=== PATIENT | female | born 1990 | race Hispanic/Latino ===

== ENCOUNTER 2017-07-25 13:21 | Emergency (ER) | payer OTHER, SELFPAY ==
[2017-07-25 14:21] LABS: #Lymphocytes 0.7 thou/uL (1.20-3.40); #Monocytes 0.7 thou/uL (0.11-0.59); %Basophils 0.2 % (0.0-1.0); %Eosinophils 0.2 % (0.0-10.0); %Lymphocytes 11.4 % (21.0-51.0); %Monocytes 10.8 % (0.0-10.0); %Neutrophils 77.5 % (42.0-75.0); Hemoglobin 13.1 g/dL (12.0-16.0); Mean Corpuscular HGB CONC 34.7 g/dL (32.0-36.0); Mean Corpuscular Volume 80.7 fl (81.0-99.0); Mean Platelet Volume 6.3 fL (7.4-10.4); Platelet Count 274 thou/uL (130-400); RBC Distribution Width 12.6 % (11.5-14.5); Red Blood Cell (RBC) Count 4.68 mill/uL (4.20-5.40); White Blood Cell (WBC) Count 6.4 thou/uL (4.8-10.8)
[2017-07-25 14:22] LABS: Bilirubin Small (Negative); Blood, Urine Negative (Negative); Clarity CLOUDY (Clear); Glucose, Urine (Dipstick) Negative (Negative); Leukocyte Small (Negative); Nitrite Negative (Negative); Protein, Urine (Dipstick) 30 mg/dL (Neg-Trace); Specific Gravity, Urine 1.028 (1.002-1.036)
[2017-07-25 14:25] LABS: Bacteria/HPF 1+ HPF (None Seen); Hyaline Casts/LPF 7-10 HYALINE CAST LPF (0-3 Hyaline); Pathc Cast-AUWi Flag 1.62 (0-2.49)
[2017-07-25 14:28] LABS: Yeast-AUWi Flag 44.7 (0-25.0)
[2017-07-25] MEDS ORDERED: Metoclopramide HCl 10 MG/2 ML VIAL ONE (14:30)
[2017-07-25 14:40] LABS: ALT (SGPT) 31 U/L (8-55); AST (SGOT) 43 U/L (5-34); Albumin 3.9 g/dL (3.5-5.0); Alkaline Phosphatase 47 U/L (40-150); Anion Gap 12 mmol/L (10-20); BUN (Urea Nitrogen) 6 mg/dL (7.0-18.7); Bilirubin, Total 0.4 mg/dL (0.2-1.2); Calc. Creatinine Clearance 0 mL/min (70-130); Calcium 8.8 mg/dL (7.8-10.44); Carbon Dioxide 21 mmol/L (22-29); Chloride 102 mmol/L (98-107); Estimated GFR-MDRD Greater than 90; Globulin 3.5 g/dL (2.4-3.5); Glucose 114 mg/dL (70-105); Lipase 18 U/L (8-78); Potassium 3.4 mmol/L (3.5-5.1); Protein, Total 7.4 g/dL (6.0-8.3); Sodium 132 mmol/L (136-145)
[2017-07-25 14:42] LABS: Transitional Epithelial 0-3 HPF (0-3)
[2017-07-25 14:43] LABS: Renal Epithelial None Seen HPF (0-3); Yeast-All Forms None Seen HPF (None Seen)
== END 2017-07-25 16:26 | disposition home or self-care (01) ==
LOC: ERS 13:21
DX: O21.9 Vomiting of pregnancy, unspecified (principal); Z79.82 Long term (current) use of aspirin; Z79.899 Other long term (current) drug therapy; Z3A.17 17 weeks gestation of pregnancy
CPT/HCPCS: 80053; 81003; 81015; 83690; 85025; 87086; 96365; 96366; J2765

== ENCOUNTER 2017-12-19 13:20 | Day surgery (SDC) | payer OTHER ==
[2017-12-19 14:23] VITALS: BMI 33.0
[2017-12-19] MEDS: Lactated Ringer's 1,000 ML IV SCH ×2 (15:01→16:07)
[2017-12-19] MEDS ORDERED: Acetaminophen 500 MG TAB PO PRN (15:21)
[2017-12-19] MEDS ORDERED: Ondansetron HCl/PF 4 MG/2 ML Vial IVP SCH (15:30)
[2017-12-19] MEDS ORDERED: Lactated Ringer's 1,000 ML IV SCH (15:30)
--- NOTE | 2017-12-19 15:37 | PDOC.FPROB ---
FMR OB H&P: HPI - History of Present Illness Chief Complaint: elevated BP Indentification: 27 yr old at 37.2 wks by 9.1 wk sono History of Present Illness: Patient presents to L&D with c/o elevated BP at home of 151/116 taken on her home wrist cuff. She notes having nausea onset last night and vomited once in the middle of the night. She reports 3 episodes of diarrhea. She was able to drink last night but today has only taken 1 glass of water. She has eaten only a small amount of food. She reported some abdominal pain near umbilicus upon arrival but now is resolved. She reports some low back pain. Denies dysuria, increase in urinary frequency, fever, chills. She reports a feeling of anxiety today as manifested by SOB and palpitations. She has felt this once a couple weeks ago as well. She does note that this anxious feeling has resolved since being in L&D. Primary Care Physician: Dr. Ivelisse Eckert FMR OB H&P: Current - Care : 3 Para: 1011 Gestational age: 37.2 Due date: 01/07/2018 Dating Criteria: 9.1 wk sono Total weight gain: 14 lbs Course/Complications: chronic HTN on ASA 81 mg Hx of gest HTN borderline Macrosomia- hadlock 89.8% @ 22 wks and 72.6% at 32.5 wks prior - desires repeat LTCS - OB Labs HIV: negative RPR: negative GBS: negative - Anatomy Survey Anatomy survey: 20.4 wks- normal visualized anatomy, hadlock 89.8%tile - Additional Ultrasound Additional: 32.5 wks- 72.6%tile FMR OB H&P: History - Past Medical History PMH: chronic HTN on ASA 81 mg Hx of gest HTN - OB History OB History: 1. 01/18/2012- suspect anembryonic - no D&C 2. 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 History: age of menarche- 14 LMP 03/26/2017 but gave different date at [facility] an [facility] (inconsistent) - Surgical History Sx History: 10/28/2012- section - Social History Social History: no tobacco, durgs, or alcohol use - Family History Family History: Mother- HTN, A-fib Maternal GPA- DM FMR OB H&P: Medications - Current Home Medications: Medication Instructions Recorded Confirmed Type Acetaminophen [Tylenol Extra 1,000 mg PO ONE PRN tab 12/19/17 Rx Strength] Aspirin [Aspirin Chewable Tablet] 81 mg PO DAILY 12/19/17 12/19/17 History Doxylamine Succinate/Vit B6 20 mg PO DAILY 12/19/17 12/19/17 History [Tabby MENDIOLA] Ondansetron [Zofran ODT] 4 mg PO Q6HR PRN #20 tab 12/19/17 Rx Vitamin 1 tablet PO DAILY 12/19/17 12/19/17 History Allergies/Adverse Reactions: Allergies Allergy/AdvReac Type Severity Reaction Status Date / Time No Known Allergies Allergy Verified 12/19/17 14:13 FMR OB H&P: ROS - Review of Systems General: denies: fever/chills, weight/appetite/sleep changes Eyes: denies: eye pain, vision changes, scotomas ENT: denies: nasal congestion, rhinorrhea, sinus pain/pressure, ear pain Cardiovascular: reports: palpitation. denies: chest pain, edema Respiratory: reports: shortness of breath. denies: cough, congestion Gastrointestinal: reports: abdominal pain, nausea, vomiting, diarrhea. denies: constipation Genitourinary (Female): denies: incontinence, dysuria, hematuria, polyuria, vaginal discharge, vaginal pain, vaginal bleeding, contractions, vaginal pressure Musculoskeletal: reports: pain, other (no CVA tenderness). denies: stiffness, tenderness, redness Neurologic: denies: numbness, syncope, seizures Integumentary: denies: itching, rash Breast: denies: skin changes Psychological: reports: anxiety. denies: depression FMR OB H&P: Vital Signs - Maternal Vital signs: BP: 117/60 HR: 111 RR: 18 Temp: 99.4 - Heart Tones Baseline: 150 (at arrival, Baseline was 170's) Variability: moderate Acceleration: present Deceleration: absent Category: category 1 FMR OB H&P: Physical Exam - Physical Exam General: NAD, awake, alert and oriented HEENT: normocephalic and atraumatic, MMM, grossly normal vision, grossly normal hearing Neck: supple Chest: non-tender to palpation Breast: symmetric Heart: RRR, normal S1/S2, no murmurs/rubs/gallops General: CTAB, no respiratory distress, good air movement, no rales/rhonchi, no wheezing Abdomen: soft, gravid, non-tender Musculoskeletal: pulses present, FROM in all four extremities, no misalignment/ asymmetry Neurological: cranial nerves II through XII intact Skin: no rash, capillary refill <2 seconds FMR OB H&P: A/P - Problem List (1) Gastroenteritis Current Visit: Yes Status: Acute Code(s): K52.9 - NONINFECTIVE GASTROENTERITIS AND COLITIS, UNSPECIFIED (2) Normal intrauterine in third trimester Current Visit: Yes Status: Acute Code(s): Z34.93 - ENCNTR FOR SUPRVSN OF NORMAL PREG, UNSP, THIRD TRIMESTER (3) Chronic hypertension Current Visit: Yes Status: Acute Code(s): I10 - ESSENTIAL (PRIMARY) HYPERTENSION (4) History of delivery Current Visit: Yes Status: Acute Code(s): Z98.891 - HISTORY OF UTERINE SCAR FROM PREVIOUS SURGERY (5) History of gestational hypertension Current Visit: Yes Status: Acute Code(s): Z87.59 - PERSONAL HISTORY OF COMP OF PREG, CHLDBRTH AND THE PUERP Discussion: Date/Time: 12/19/17 1532 27 yr old at 37.2 wks by 9.1 wk sono with N/V/D. 1. gastroenteritis -abdominal pain resolved so low suspicion for gallbladder or appendix concern. Diarrhea presents so unlikely SBO. -initially tachycardic, resolved. Afebrile -patient feeling better s/p 1 bolus LR. Will bolus another liter -cont LR at 150 ml/hr -monitor FHTs -check UA -likely home if FHT's cont to be reassuring 2. hx of prior -repeat desired 3. chronic HTN -BPs well controlled in L&D during triage -per records, she has been well controlled -cont ASA 4. borderline macrosomia -hadlock 89.8 % @ 22 wks and repeat is 72.6%tile at 32.5 wks This H&P was discussed with [López] who agrees with the above documentation and plan. Attending Addendum - Attending Addendum Date/Time: 12/19/17 4184 I personally evaluated the patient and discussed the management with Dr. Noyola I agree with the History, Examination, Assessment and Plan documented above with any addition or exceptions noted below. 27 yo female at 37.2 wks by 9.1 wk sono here for evaluation of N/V/D. Patient with 3 episodes of diarrhea and 1 episode of NB/NB emesis. Now symptoms resolved but and maternal tachycardia. Fetus reassuring. +FM. No other complaints. No contractions. Patient started on IVFs. s/p 2Ls with great improvement in symptoms and tachycardia. Now tachycardia has resolved. Borderline maternal tachycardia. Will complete remainder of 3L and repeat pulse check. Overall patient ok for d/c. Precautions discussed. Follow up with Dr. Eckert next week. Rx sent for ryan Fontaine. Elsie
[2017-12-19 15:44] LABS: Bilirubin Negative (Negative); Blood, Urine Negative (Negative); Clarity CLEAR (Clear); Glucose, Urine (Dipstick) Negative (Negative); Leukocyte Negative (Negative); Nitrite Negative (Negative); Protein, Urine (Dipstick) Trace mg/dL (Neg-Trace); Specific Gravity, Urine 1.015 (1.002-1.036); pH, Urine 7.5 (5.0-9.0)
== END 2017-12-19 18:26 | disposition home or self-care (01) ==
LOC: L&D/OP 13:20
PROVIDERS: ATTEND Student in an Organized Health Care Education/Training Program
DX: O99.613 Diseases of the digestive system complicating pregnancy, third trimester (principal); K52.9 Noninfective gastroenteritis and colitis, unspecified; O10.913 Unspecified pre-existing hypertension complicating pregnancy, third trimester; Z98.890 Other specified postprocedural states; Z3A.37 37 weeks gestation of pregnancy; Z79.82 Long term (current) use of aspirin; Z79.899 Other long term (current) drug therapy
CPT/HCPCS: 81003; 96360; 96361; 96375; 99283; J2405

== ENCOUNTER 2017-12-28 10:35 | Inpatient (IN) | payer OTHER ==
[2017-12-28 11:21] VITALS: BMI 33.9
--- NOTE | 2017-12-28 11:38 | PDOC.FPROB ---
FMR OB H&P: HPI - History of Present Illness Chief Complaint: contractions and possible LOF Indentification: 27 yr old at 38.4 wks by 9.1 wk sono History of Present Illness: Patient reports painful contractions. Thinks water broke yesterday at [id number]. Contractions began about 2250 last night. Got stronger this morning. No vaginal bleeding. +FM. No headaches, vision changes. Some low abdominal and back pain, worse with contractions or if pressing on belly. No reported fevers. Primary Care Physician: Dr. Ivelisse Eckert FMR OB H&P: Current - Care : 3 Para: 1011 Gestational age: 38.4 Due date: 01/07/2018 Dating Criteria: 9.1 wk sono Total weight gain: 14lbs Course/Complications: chronic HTN on ASA 81 mg hx of gest HTN borderline macrosomia (resvoled)- hadlock 989.8% @ 22 wks and 72.6% at 32.5 wks prior C/S- desires rLTCS, was scheduled for 12/29/17 - Anatomy Survey Anatomy survey: 20.4 wks- normal visualized anatomy, hadlock 89.8% tile - Additional Ultrasound Additional: 32.5 wks- 72.6%tile FMR OB H&P: History - Past Medical History PMH: chronic HTN on ASA 81 mg hx of gest HTN - OB History OB History: 01/18/2012- suspect anembryonic - no D&C 10/28/2012- for failed induction d/t arrest of dilation at [facility] per patient at 40 wks. 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: age of menarche- 14 LMP 03/26/2017 but gave different date at [facility] and [facility] (inconsistent) so dated by sono - Surgical History Sx History: 10/28/2012- section - Social History Social History: no tobacco, drugs, alcohol - Family History Family History: Mother- HTN, a-fib Maternal GPA- DM FMR OB H&P: Medications - Current Home Medications: Medication Instructions Recorded Confirmed Type Aspirin [Aspirin Chewable Tablet] 81 mg PO DAILY 12/19/17 12/19/17 History Doxylamine Succinate/Vit B6 20 mg PO DAILY 12/19/17 12/19/17 History [Tabby MENDIOLA] Vitamin 1 tablet PO DAILY 12/19/17 12/19/17 History Allergies/Adverse Reactions: Allergies Allergy/AdvReac Type Severity Reaction Status Date / Time No Known Allergies Allergy Verified 12/19/17 14:13 FMR OB H&P: ROS - Review of Systems General: denies: fever/chills, weight/appetite/sleep changes ENT: denies: nasal congestion, rhinorrhea Cardiovascular: denies: chest pain, palpitation Respiratory: denies: cough, congestion, shortness of breath Gastrointestinal: reports: abdominal pain, cramping. denies: indigestion, bloating, nausea, vomiting, diarrhea Genitourinary (Female): reports: contractions. denies: dysuria, vaginal discharge, vaginal pain, vaginal bleeding, vaginal pressure Musculoskeletal: denies: pain, stiffness, tenderness Neurologic: denies: numbness, syncope Psychological: denies: depression, anxiety FMR OB H&P: Vital Signs - Maternal Vital signs: 129/84 HR: 101 RR: 18 Temp: 98.4 - Heart Tones Baseline: 145 Variability: moderate Acceleration: present Deceleration: absent Category: category 1 [place] contractions every: 2-3 min FMR OB H&P: Physical Exam - Physical Exam General: awake, alert and oriented, other (breathing through contractions) HEENT: normocephalic and atraumatic Neck: supple, FROM Chest: non-tender to palpation Breast: symmetric Heart: RRR, normal S1/S2, no murmurs/rubs/gallops General: CTAB, no respiratory distress, good air movement, no rales/rhonchi, no wheezing Abdomen: soft, gravid Deviation from normal: mild tenderness in low abdominal region Musculoskeletal: normal gait and station Neurological: cranial nerves II through XII intact Skin: no rash Psychiatric: intact recent and remote memory, good judgement and insight - Pelvic Exam SVE: 280/-2 FMR OB H&P: A/P - Problem List (1) SROM (spontaneous rupture of membranes) Current Visit: Yes Status: Acute Code(s): [id number] - Assessment and Plan: 27 yr old at 38.4 wks by 9.1 wk sono here for contractions and SROM - plan for now - suspected SROM for 19 hours - GBS negative (2) Chronic hypertension Current Visit: No Status: Acute Code(s): I10 - ESSENTIAL (PRIMARY) HYPERTENSION Assessment and Plan: -BPs have been well controlled. - 2 documented pressures in 140 systolic at 9wks and 12 wks. -monitor BPs (3) History of delivery Current Visit: No Status: Acute Code(s): Z98.891 - HISTORY OF UTERINE SCAR FROM PREVIOUS SURGERY Assessment and Plan: -planning for rLTCS -anesthesia notified -pending labs (4) Normal intrauterine in third trimester Current Visit: No Status: Acute Code(s): Z34.93 - ENCNTR FOR SUPRVSN OF NORMAL PREG, UNSP, THIRD TRIMESTER Discussion: Date/Time: 12/28/17 1481 This H&P was discussed with [] and [] who agree with the above documentation and plan. Attending Addendum - Attending Addendum Date/Time: 12/28/17 1328 I personally evaluated the patient and discussed the management with Dr. Noyola I agree with the History, Examination, Assessment and Plan documented above with any addition or exceptions noted below. 27 yo at 38.4 wks by 9.1 wk sono presenting with SROM one day ago. Will proceed with delivery at this time. Prior x 1. Pt has been counseled on r/b/a to repeat section vs tolac and she desires RLTCS.
[2017-12-28 12:09] LABS: Amnisure Test RUPTURE DETECTED (No Rupture)
[2017-12-28 12:10] LABS: Amnisure Internal Control QC ACCEPTABLE (ACCEPTABLE)
[2017-12-28] MEDS ORDERED: Promethazine HCl 25 MG/ML VIAL IM PRN (12:44)
[2017-12-28] MEDS ORDERED: Ondansetron HCl/PF 4 MG/2 ML Vial IVP PRN (12:44)
[2017-12-28] MEDS ORDERED: CEFAZOLIN/Water 2 GM/20 ML SYRINGE SLOW IVP SCH (12:45)
[2017-12-28] MEDS ORDERED: Bicitra 30 ML UDCUP PO SCH (12:45)
[2017-12-28] MEDS: Lactated Ringer's 1,000 ML IV SCH ×3 (13:00→14:40)
[2017-12-28 13:24] LABS: #Basophils 0.1 thou/uL (0.0-0.2); #Eosinphils 0.1 thou/uL (0.0-0.7); #Lymphocytes 2.3 thou/uL (1.20-3.40); #Monocytes 0.7 thou/uL (0.11-0.59); #Neutrophils 7.3 thou/uL (1.40-6.50); %Basophils 0.7 % (0.0-1.0); %Eosinophils 0.5 % (0.0-10.0); %Lymphocytes 22.2 % (21.0-51.0); %Monocytes 6.8 % (0.0-10.0); %Neutrophils 69.7 % (42.0-75.0); Hemoglobin 12.7 g/dL (12.0-16.0); Mean Corpuscular HGB CONC 34.8 g/dL (32.0-36.0); Mean Corpuscular Hemoglobin 28.5 pg (27.0-31.0); Mean Corpuscular Volume 81.9 fL (78.0-98.0); Mean Platelet Volume 6.4 fL (7.4-10.4); Platelet Count 220 thou/uL (130-400); RBC Distribution Width 13.7 % (11.5-14.5); Red Blood Cell (RBC) Count 4.45 mill/uL (4.20-5.40); White Blood Cell (WBC) Count 10.4 thou/uL (4.8-10.8)
[2017-12-28] MEDS ORDERED: Morphine PF 1 MG/ML SYR ONE (13:27)
[2017-12-28] MEDS ORDERED: Ketorolac Tromethamine 30 MG/ML VIAL ONE ×2 (13:27→14:45)
[2017-12-28] MEDS ORDERED: PHENYLEPHRINE-NS 100 MCG/ML 10 ML SYRINGE ONE ×2 (13:27→13:28)
[2017-12-28] MEDS ORDERED: Ondansetron HCl/PF 4 MG/2 ML Vial ONE (13:27)
[2017-12-28] MEDS ORDERED: Oxytocin 10 UNITS/ML VIAL ONE (13:28)
[2017-12-28] MEDS ORDERED: ePHEDrine/0.9% NaCl/PF SYRINGE 50 mg/10 ml ONE (13:28)
[2017-12-28] MEDS ORDERED: Bupivacaine 0.75% W/DEXTROSE 8.25% 2 ML AMP ONE (13:29)
[2017-12-28] MEDS ORDERED: Lidocaine 1% PF 5 ML VIAL ONE (13:29)
[2017-12-28 14:06] LABS: HBSAg Index 0.17 S/CO (0-0.99); Hep B Surf Ag Non-Reactive S/CO (NonReactive)
[2017-12-28] MEDS ORDERED: HYDROmorphone 2 MG/ML VIAL SLOW IVP PRN (14:55)
[2017-12-28] MEDS ORDERED: Meperidine HCl/PF 25 MG/ML VIAL SLOW IVP PRN (14:55)
[2017-12-28] MEDS ORDERED: NS / Oxytocin 40 units/1000ml 1,000 ML ONE (16:03)
--- NOTE | 2017-12-28 16:21 | PDOC.EVN ---
Event Note - Event Note Event Note: OPERATIVE NOTE PREOPERATIVE DIAGNOSIS: Term IUP Prior C/S Delivery, Declines JELLY Spontaneous Rupture of Membranes POSTOPERATIVE DIAGNOSIS: Same PROCEDURE: Repeat Low Transverse Section ATTENDING / PRIMARY SURGEON: Riley Comer MD RESIDENT / ASISSTANT SURGEON: Kendell Whalen MD PROCTORING: Marlene Valero DO ANESTHESIA: Spinal QBL: 565 cc CLINICAL SYNOPSIS: The patient is a 27 y/o female now 2 at 34 4/7 weeks EGA admitted with SROM and contractions since the previous night. Amnisure positive, 2 cm dilated. course had been complicated by chronic HTN on ASA. Please refer to Dr. Bravo H&P for complete details. I discussed the procedure in detail with the patient and R/B/A reviewed at length. The patient provided informed consent. PROCEDURE NOTE: After properly identifying the patient, she was taken to the OR and placed on the operating table in the sitting position. A spinal anesthetic was then administered. The patient was then placed in the supine position with a slight left lateral tilt. 2 g Ancef was administered for antibiotic prophylaxis. A Leiva catheter was inserted. heart tones were reassuring. A surgical time-out was taken per protocol. The patients abdomen was prepped and draped in the usual fashion for section. Check was made to ensure adequate anesthesia before proceeding further. A scalpel was used to create a pfannenstiel incision through the skin over her previous incision site and subcutaneous tissue. The abdominal fascia was nicked on both sides of the midline. Nelson scissors were used to extend the fascial incision bilaterally. The fascia was dissected easily off the anterior surface of the rectus muscles superiorly and inferiorly with a combination of blunt and sharp dissection. There was very little if any scar tissue. The rectus muscles were divided high in the midline and the peritoneum identified. The peritoneum was tented with hemostats and entered using Metzenbaum scissors. The peritoneal opening was extended cephalad and caudad using manual traction. A bladder blade was placed. A bladder flap was then created using Metzenbaum scissors. The bladder blade was then repositioned, interposed between the anterior surface of the lower uterine segment and the posterior surface of the bladder. A scalpel was used to create a small transverse incision in the lower uterine segment. A small amount of clear amniotic fluid was encountered. The uterine incision was extended bilaterally using the operators fingers and digital traction. The vertex was left occiput anterior. The infants head was elevated through the hysterotomy. There was no nuchal cord. The rest of the delivered easily. Following delivery, the infants nasopharynx and hypopharynx were suctioned with a bulb syringe. After delayed cord clamping, the infant was handed to waiting attendants. The healthy male and APGARS of 8/8 and one and five minutes respectively and weighed 7 lbs, 4 ozs. Cord blood sample was obtained and forwarded to the laboratory. Gentle traction was applied to the cord and the placenta delivered spontaneously and intact shortly thereafter. The placenta appeared to be grossly normal, the cord was tri-vessel. The uterus was then exteriorized from the pelvis and secured with a wet lap sponge. The uterine cavity was curetted with a dry lap sponge. The angles of the uterine incision were identified and grasped with ring forceps. The uterine incision was repaired in two layers with 1 - Monocryl suture material. The first layer was a running interlocking stitch, the second layer was imbricating. Uterine tone and hemostasis were both excellent. Clots were cleared from the pouch of Michael. The uterus was replaced back into the pelvis. The uterine incision was inspected once again and noted to be hemostatic. Neither the bladder flap nor the peritoneum were closed. The abdominal fascia was closed using 0 - Vicryl suture material with a running stitch. Integrity of the fascia was checked. The subcutaneous tissue was irrigated with warm saline and reapproximated with interrupted 3-0 chromic sutures. The skin was closed with 3 0 Monocryl with running subcuticular suture. Cosmetic results and hemostasis were both excellent. Dermabond was applied to the wound. A sterile dressing was then placed. At the conclusion of the procedure, sponge, instrument and needle counts were all correct. The Leiva catheter was draining clear urine. The patient was transported to the PACU in good condition. RILEY COMER MD <Riley Comer - Last Filed: 12/28/17 16:22> - Event Note Event Note: Please note, Pt is 27 yo [id number] at 38w4d, not 34w4d. <Marlene Valero - Last Filed: 12/29/17 13:36>
[2017-12-28] MEDS ORDERED: NS / Oxytocin 40 units/1000ml 1,000 ML IV SCH (17:15)
[2017-12-28] MEDS ORDERED: Simethicone Chewable 80 MG TAB PO PRN (18:20)
[2017-12-28] MEDS ORDERED: Bisacodyl 10 MG SUPP PR PRN (18:20)
[2017-12-28] MEDS ORDERED: Lanolin Ointment 7 GM TUBE TOP PRN (18:20)
--- NOTE | 2017-12-28 19:34 | PDOC.PP ---
Post Progress Note Post Day #: 0 Subjective: Time of exam: 19:15 Patient states she feels well and that her pain is well controlled. Only has carrie abdominal pain 2/2 palpation on examination. No nausea, headache, chest pain , or SOB. No concerns about bleeding. States baby is doing well. No concerns at this time. PO intake tolerated: yes Ambulation: no Vital Signs (12 hours) Temp Pulse Resp BP Pulse Ox 12/28/17 18:45 94 18 132/82 12/28/17 17:45 98.8 F 89 18 128/76 99 12/28/17 12:00 98.7 F 101 H 20 Weight Weight 95.254 kg - Physical Examination General: NAD Cardiovascular: no m/r/g, RRR Respiratory: clear to auscultation bilaterally, non-labored breathing Abdominal: + bowel sounds, lochia, no distention, appropriately TTP Fundus firm & at: just below the umbilicus Deviation from normal: Incision covered in post-op dressing. Did not remove. Neurological: no gross focal deficits Psychiatric: A&Ox3, normal affect Result Diagrams: 12/28/17 13:00 Additional Labs: Post Labs Blood Type O POSITIVE 12/28/17 13:00 Hep Bs Antigen Non-Reactive S/CO (NonReactive) 12/28/17 12:45 (1) History of delivery Code(s): Z98.891 - HISTORY OF UTERINE SCAR FROM PREVIOUS SURGERY Status: Acute (2) History of gestational hypertension Code(s): Z87.59 - PERSONAL HISTORY OF COMP OF PREG, CHLDBRTH AND THE PUERP Status: Chronic (3) Chronic hypertension Code(s): I10 - ESSENTIAL (PRIMARY) HYPERTENSION Status: Chronic - Assessment/Plan 27YO female now 2 day #0 s/p rLTCS @ 34.4 weeks. 1. day #0: - Will continue routine care. - Pain is well controlled. Will continue [place] PRN for pain. Consider adding CARLOS ibuprofen. - No ambulation yet but SCDs in place. - Leiva still in place with 200mL seen on exam. Adequate output. - Will continue docusate PRN for constipation. 2. Chronic HTN: - BPs have been well-controlled since admission. - Will continue to monitor. 3. h/o prolonged ROM: - Patient has been afebrile since admission & appropriately TTP on exam so no concern for infection at this time. - Will continue to monitor vitals and pain. Dispo: Likely to go home Friday after 48 hours post-op.
[2017-12-29] MEDS: HYDROcodone/Acetaminophen 5/325 mg Tablet PO PRN ×3 (04:42→23:53)
[2017-12-29 05:42] LABS: Hemoglobin 10.2 g/dL (12.0-16.0); Mean Corpuscular HGB CONC 35.7 g/dL (32.0-36.0); Mean Corpuscular Hemoglobin 29.1 pg (27.0-31.0); Mean Corpuscular Volume 81.6 fL (78.0-98.0); Mean Platelet Volume 6.1 fL (7.4-10.4); Platelet Count 193 thou/uL (130-400); RBC Distribution Width 13.6 % (11.5-14.5); White Blood Cell (WBC) Count 9.2 thou/uL (4.8-10.8)
--- NOTE | 2017-12-29 06:53 | PDOC.PP ---
Post Progress Note Post Day #: 1 Subjective: Feeling well and that is going well. No concerns this morning. PO intake tolerated: yes Flatus: yes Ambulation: yes Vital Signs (12 hours) Temp Pulse Resp BP Pulse Ox 12/29/17 04:30 98.2 F 83 20 115/74 12/29/17 00:10 98.1 F 85 20 111/56 L 12/28/17 20:10 98.1 F 109 H 20 119/66 98 Weight Weight 95.254 kg - Physical Examination General: NAD Cardiovascular: no m/r/g, RRR Respiratory: clear to auscultation bilaterally, non-labored breathing Abdominal: + bowel sounds, no distention, appropriately TTP Fundus firm & at: umbilicus Skin: CS incision dry & intact, no rash Neurological: no gross focal deficits Psychiatric: A&Ox3, normal affect Result Diagrams: 12/29/17 05:03 Additional Labs: Post Labs Blood Type O POSITIVE 12/28/17 13:00 Hep Bs Antigen Non-Reactive S/CO (NonReactive) 12/28/17 12:45 (1) Status post section routine follow-up Code(s): Z39.2 - ENCOUNTER FOR ROUTINE FOLLOW-UP; Z98.891 - HISTORY OF UTERINE SCAR FROM PREVIOUS SURGERY Status: Acute - Assessment/Plan 37 yo now 2011 PPD #1 from repeat LTCS 1. PPD 1 - Meeting all pp milestones - Continue routine care 2. cHTN - BP WNL - Continue to monitor - Recommend close OP f/u and assessment for medication 3. LTCS - Wound clean and dry - Subcuticular suture in place, no need for staple removal 4. Acute blood loss anemia - Stable, will monitor blood loss today and consider iron PO if indicated Possible discharge tomorrow if doing well. <Ivelisse Eckert - Last Filed: 12/29/17 07:14> Vital Signs (12 hours) Temp Pulse Resp BP Pulse Ox 12/30/17 12:00 98.1 F 87 20 120/75 12/30/17 08:43 98.4 F 100 139/90 20 L 12/30/17 07:35 98.4 F 100 20 12/30/17 04:00 98.2 F 91 20 117/65 Weight Weight 95.254 kg Result Diagrams: 12/29/17 05:03 Additional Labs: Post Labs Blood Type O POSITIVE 12/28/17 13:00 Hep Bs Antigen Non-Reactive S/CO (NonReactive) 12/28/17 12:45 <Donn Do - Last Filed: 12/30/17 12:33> Attending Addendum - Attending Addendum Date/Time: 12/30/17 1230 I personally evaluated the patient and discussed the management with Drs. Eckert and Celestine. I agree with the History, Examination, Assessment and Plan documented above with any addition or exceptions noted below. Víctro's p.o. No N/V. Vitals normal. Afeb. Abdomen soft, benign, Fundus firm, incision C/D/I. POD #1--expected recovery. Continue current care. <Donn Do - Last Filed: 12/30/17 12:33>
[2017-12-29] MEDS: Ferrous Sulfate 325 MG TAB PO SCH ×2 (07:57→17:32)
[2017-12-29] MEDS: Docusate Calcium (SURFAK) 240 MG CAP PO PRN (08:26)
[2017-12-29] MEDS: Ibuprofen 600 MG TAB PO PRN ×3 (08:26→23:53)
[2017-12-29] MEDS: Prenatal Vitamin 1 TAB PO SCH (08:27)
[2017-12-29] MEDS ORDERED: Adacel (T-DAP) 0.5 ML VIAL IM ONE (09:00)
[2017-12-29] MEDS: Lactated Ringer's 1,000 ML IV SCH (17:32)
[2017-12-30] MEDS: Ibuprofen 600 MG TAB PO PRN (05:27)
[2017-12-30] MEDS: Lactated Ringer's 1,000 ML IV SCH ×2 (05:34→08:47)
--- NOTE | 2017-12-30 06:49 | PDOC.PP ---
Post Progress Note Post Day #: 2 Subjective: Feeling well this morning. Ambulating and tolerating PO. Pain well-controlled. PO intake tolerated: yes Flatus: yes Ambulation: yes Vital Signs (12 hours) Temp Pulse Resp BP 12/30/17 04:00 98.2 F 91 20 117/65 12/30/17 00:00 98.4 F 98 20 118/69 12/29/17 20:05 98.1 F 100 20 132/80 Weight Weight 95.254 kg - Physical Examination General: NAD Cardiovascular: no m/r/g, RRR Respiratory: clear to auscultation bilaterally, non-labored breathing Abdominal: + bowel sounds, no distention, appropriately TTP Fundus firm & at: umbilicus Skin: CS incision dry & intact, no rash Neurological: no gross focal deficits Psychiatric: A&Ox3, normal affect Result Diagrams: 12/29/17 05:03 Additional Labs: Post Labs Blood Type O POSITIVE 12/28/17 13:00 Hep Bs Antigen Non-Reactive S/CO (NonReactive) 12/28/17 12:45 (1) Status post section routine follow-up Code(s): Z39.2 - ENCOUNTER FOR ROUTINE FOLLOW-UP; Z98.891 - HISTORY OF UTERINE SCAR FROM PREVIOUS SURGERY Status: Acute - Assessment/Plan 37 yo now 2011 PPD #2 from repeat LTCS 1. PPD 2 - Meeting all pp milestones - Continue routine care - Pain well-controlled on ibuprofen and norco 2. cHTN - BP WNL - Continue to monitor - Recommend close OP f/u and assessment for medication 3. LTCS - Wound clean and dry - Subcuticular suture in place, no need for staple removal 4. Acute blood loss anemia - Stable with normal VS Possible discharge later today <Ivelisse Eckert - Last Filed: 12/30/17 07:17> Vital Signs (12 hours) Temp Pulse Resp BP Pulse Ox 12/30/17 12:00 98.1 F 87 20 120/75 12/30/17 08:43 98.4 F 100 139/90 20 L 12/30/17 07:35 98.4 F 100 20 12/30/17 04:00 98.2 F 91 20 117/65 Weight Weight 95.254 kg Result Diagrams: 12/29/17 05:03 Additional Labs: Post Labs Blood Type O POSITIVE 12/28/17 13:00 Hep Bs Antigen Non-Reactive S/CO (NonReactive) 12/28/17 12:45 <Donn Do - Last Filed: 12/30/17 12:35> Attending Addendum - Attending Addendum Date/Time: 12/30/17 6397 I personally evaluated the patient and discussed the management with Drs. Eckert and Celestine. I agree with the History, Examination, Assessment and Plan documented above with any addition or exceptions noted below. Víctor's P.O. Vitals normal Afeb. Incision C/D/I Pain controlled with [place]. Will d/c home with Ibuprofen and Tylenol #3. F/u with Babar. <Donn Do - Last Filed: 12/30/17 12:35>
[2017-12-30] MEDS: HYDROcodone/Acetaminophen 5/325 mg Tablet PO PRN ×2 (08:45→12:58)
[2017-12-30] MEDS: Prenatal Vitamin 1 TAB PO SCH (08:45)
[2017-12-30] MEDS: Docusate Calcium (SURFAK) 240 MG CAP PO PRN (08:45)
[2017-12-30] MEDS: Ferrous Sulfate 325 MG TAB PO SCH (08:46)
[2017-12-30 12:30] VITALS: BP 120/75; TEMP 98.1
== END 2017-12-30 13:40 | disposition home or self-care (01) | DRG 765 ==
LOC: L&D/OP 10:35 → L&D 12:44 → 3SW 17:58
PROVIDERS: ADMIT Family Medicine; ATTEND Family Medicine
PROC: 10D00Z1 Extraction of Products of Conception, Low, Open Approach (ICD-10-PCS; principal; 2017-12-28)
DX: O10.92 Unspecified pre-existing hypertension complicating childbirth (principal); D62 Acute posthemorrhagic anemia; Z3A.38 38 weeks gestation of pregnancy; Z37.0 Single live birth; O34.211 Maternal care for low transverse scar from previous cesarean delivery; O99.02 Anemia complicating childbirth
CPT/HCPCS: 36415; 51702; 84112; 85025; 85027; 86762; 86850; 86900; 86901; 87340; 99285; J1885; J2001; J2274; J2405; J2590; J3490

== ENCOUNTER 2018-02-11 12:17 | Inpatient (IN) | payer OTHER ==
[2018-02-11] MEDS ORDERED: Acetaminophen 500 MG TAB ONE (13:04)
[2018-02-11] MEDS ORDERED: cefTRIAXone\\ROCEPHIN 2 GM VIAL ONE (13:04)
[2018-02-11] MEDS ORDERED: cefTRIAXone\\ROCEPHIN 1 GM VIAL ONE (13:05)
[2018-02-11 13:20] LABS: Hemoglobin 12.3 g/dL (12.0-16.0); Mean Corpuscular HGB CONC 31.7 g/dL (32.0-36.0); Mean Corpuscular Hemoglobin 25.5 pg (27.0-31.0); Mean Corpuscular Volume 80.6 fL (78.0-98.0); Mean Platelet Volume 7.1 fL (7.4-10.4); Platelet Count 244 thou/uL (130-400); RBC Distribution Width 12.6 % (11.5-14.5); Red Blood Cell (RBC) Count 4.81 mill/uL (4.20-5.40); White Blood Cell (WBC) Count 21.4 thou/uL (4.8-10.8)
[2018-02-11 13:35] LABS: ALT (SGPT) 11 U/L (8-55); AST (SGOT) 20 U/L (5-34); Albumin 4.1 g/dL (3.5-5.0); Alkaline Phosphatase 86 U/L (40-150); Anion Gap 16 mmol/L (10-20); BUN (Urea Nitrogen) 11 mg/dL (7.0-18.7); Bilirubin, Total 0.7 mg/dL (0.2-1.2); Calc. Creatinine Clearance 0 mL/min (70-130); Calcium 8.9 mg/dL (7.8-10.44); Carbon Dioxide 20 mmol/L (22-29); Chloride 101 mmol/L (98-107); Estimated GFR-MDRD 78; Globulin 4.1 g/dL (2.4-3.5); Glucose 123 mg/dL (70-105); Lipase 9 U/L (8-78); Magnesium 1.8 mg/dL (1.6-2.6); Potassium 3.6 mmol/L (3.5-5.1); Protein, Total 8.2 g/dL (6.0-8.3); Sodium 133 mmol/L (136-145)
[2018-02-11] MEDS ORDERED: Ketorolac Tromethamine 30 MG/ML VIAL ONE (13:43)
[2018-02-11 13:46] LABS: Bilirubin Negative (Negative); Blood, Urine Moderate (Negative); Clarity CLOUDY (Clear); Glucose, Urine (Dipstick) Negative (Negative); Leukocyte Large (Negative); Nitrite Negative (Negative); Protein, Urine (Dipstick) 100 mg/dL (Neg-Trace); Specific Gravity, Urine 1.006 (1.002-1.036)
[2018-02-11 13:48] LABS: Bacteria/HPF 4+ HPF (None Seen); Hyaline Casts/LPF 4-6 HYALINE CAST LPF (0-3 Hyaline); Pathc Cast-AUWi Flag 1.59 (0-2.49); RBC/HPF 0-3 HPF (0-3); Squamous Epithelial None Seen HPF (0-3)
[2018-02-11] MEDS ORDERED: Ondansetron ODT 4 MG TAB PO PRN (14:04)
[2018-02-11] MEDS ORDERED: Ondansetron HCl/PF 4 MG/2 ML Vial IVP PRN (14:04)
[2018-02-11] MEDS ORDERED: HYDROcodone/Acetaminophen 5/325 mg Tablet PO PRN ×2 (14:04)
[2018-02-11 14:07] LABS: Band 19 % (5-11); Lymphocytes 3 % (21-51); MDiff Complete? YES; Monocytes 3 % (0-10); Neutrophil 75 % (42-75); PLT Morphology Comment Appears Adequate
--- NOTE | 2018-02-11 14:42 | PDOC.FPRHP ---
- History of Present Illness Chief Complaint: fever History of Present Illness: Che is a 27 yo F with PMHx cHTN (recently well controlled off meds) who presents for 1 week of dysuria, vaginal bleeding and fever on and off. She reports that she was seen last Friday in clinic with UTI symptoms. At that time she was prescribed an antibiotic for 3 days and symptoms seemed to improve a little bit. She began to feel worse on Friday but thought she was coming down with a GI bug that her daughter had. She had nausea and vomiting but no abdominal pain or diarrhea. She endorses foul smelling vaginal discharge that has improved today. She endorses subjective fever and chills. She did not take her temp at home. Her daughter and have had n/v/d the last few days. Her baby has seemed well to her. She is . She had a repeat c/s on . ED Course: Labs, 4L NS, 2 gm rocephin, about to start vancomycin EKG sinus tachycardia rate 172, Qtc 480 - Allergies/Adverse Reactions Allergies Allergy/AdvReac Type Severity Reaction Status Date / Time No Known Allergies Allergy Verified 12/19/17 14:13 - Home Medications Medication Instructions Recorded Confirmed Type Vitamin 1 tablet PO DAILY 12/19/17 12/28/17 History Acetaminophen With Codeine 1 tablet PO Q6HR PRN #30 tablet 12/30/17 Rx [Tylenol with Codeine #3] Ibuprofen 200 mg PO Q8HR PRN #100 tablet 12/30/17 Rx - History PMHx: cHTN PSHx: C/S x2 FHx: Mom - a fib and HTN; Maternal GPA - DM Social: No tobacco, alcohol, drugs. . 2 children. - Review of Systems General: reports: fever/chills, night sweats, fatigue. denies: weight/appetite/ sleep changes Eyes: denies: eye pain, vision changes ENT: denies: nasal congestion, rhinorrhea Respiratory: denies: cough, congestion, shortness of breath Cardiovascular: denies: chest pain, palpitation Gastrointestinal: reports: nausea, vomiting. denies: diarrhea, abdominal pain Genitourinary: reports: dysuria, polyuria Skin: denies: rashes, lesions Musculoskeletal: denies: pain, tenderness, stiffness, swelling Neurological: reports: weakness. denies: numbness, syncope Psychological: denies: anxiety, depression - Vital signs BP: 121/81 HR: 142 RR: 18 Tmax: 104.7 Pox: 98% on RA Wt: 81 kg - Physical Exam Constitutional: NAD, awake, alert and oriented HEENT: normocephalic and atraumatic, PERRLA, other (dry MM) Neck: supple, trachea midline Chest: no-tender to palpation Heart: normal S1/S2, other (tachycardic) Lungs: CTAB, no respiratory distress Abdomen: soft, non-tender, bowel sounds present (hypoactive) Musculoskeletal: normal structure, normal tone, ROM grossly normal Neurological: no focal deficit, normal sensation Skin: no rash/lesions Heme/Lymphatic: no unusual bruising or bleeding, no purpura Psychiatric: normal mood and affect, good judgment and insight, intact recent and remote memory FMR H&P: Results - Labs Result Diagrams: 02/11/18 12:59 02/11/18 12:59 Lab results: WBC 21.4 thou/uL (4.8-10.8) H 02/11/18 12:59 Hgb 12.3 g/dL (12.0-16.0) 02/11/18 12:59 Hct 38.8 % (36.0-47.0) 02/11/18 12:59 MCV 80.6 fL (78.0-98.0) 02/11/18 12:59 Plt Count 244 thou/uL (130-400) 02/11/18 12:59 Band Neuts % (Manual) 19 % (5-11) H 02/11/18 12:59 Sodium 133 mmol/L (136-145) L 02/11/18 12:59 Potassium 3.6 mmol/L (3.5-5.1) 02/11/18 12:59 Chloride 101 mmol/L (98-107) 02/11/18 12:59 Carbon Dioxide 20 mmol/L (22-29) L 02/11/18 12:59 BUN 11 mg/dL (7.0-18.7) 02/11/18 12:59 Creatinine 0.88 mg/dL (0.6-1.1) 02/11/18 12:59 Glucose 123 mg/dL (70-105) H 02/11/18 12:59 Lactic Acid 1.5 mmol/L (0.5-2.2) 02/11/18 12:59 Calcium 8.9 mg/dL (7.8-10.44) 02/11/18 12:59 Total Bilirubin 0.7 mg/dL (0.2-1.2) 02/11/18 12:59 AST 20 U/L (5-34) 02/11/18 12:59 ALT 11 U/L (8-55) 02/11/18 12:59 Alkaline Phosphatase 86 U/L (40-150) 02/11/18 12:59 Serum Total Protein 8.2 g/dL (6.0-8.3) 02/11/18 12:59 Albumin 4.1 g/dL (3.5-5.0) 02/11/18 12:59 Lipase 9 U/L (8-78) 02/11/18 12:59 Urine Ketones Negative mg/dL (Negative) 02/11/18 13:22 Urine Blood Moderate (Negative) H 02/11/18 13:22 Urine Nitrite Negative (Negative) 02/11/18 13:22 Ur Leukocyte Esterase Large (Negative) H 02/11/18 13:22 Urine RBC 0-3 HPF (0-3) 02/11/18 13:22 Urine WBC Greater Than 50-TNTC HPF (0-3) H 02/11/18 13:22 Ur Squamous Epith Cells None Seen HPF (0-3) 02/11/18 13:22 Urine Bacteria 4+ HPF (None Seen) H 02/11/18 13:22 - EKG Interpretation EKG: Sinus tachycardia, QTC 480, HR 172, no axis deviation FMR H&P: A/P - Problem List (1) Sepsis Current Visit: Yes Status: Acute Code(s): A41.9 - SEPSIS, UNSPECIFIED ORGANISM (2) Pyelonephritis Current Visit: Yes Status: Acute Code(s): N12 - TUBULO-INTERSTITIAL NEPHRITIS, NOT SPCF ACUTE OR CHRONIC (3) History of delivery Current Visit: No Status: Acute Code(s): Z98.891 - HISTORY OF UTERINE SCAR FROM PREVIOUS SURGERY (4) Tachycardia Current Visit: Yes Status: Acute Code(s): R00.0 - TACHYCARDIA, UNSPECIFIED (5) Fever Current Visit: Yes Status: Acute Code(s): R50.9 - FEVER, UNSPECIFIED - Plan 27 yo F with sepsis 2/2 pyelonephritis 1. Sepsis - With significant tachycardia, will admit to IMCU for close monitoring - s/p 4L NS in ED - Will continue Rocephin (sensitivity from 02/06 showed sensitivity), resistant to Bactrim which was initial tx - Midline placed in ED - Continue NS @ 250 mL/hr - BCx, UCx pending 2. Tachycardia - Sinus on EKG - Improving with fluids - Continue to monitor on tele - Repeat EKG if no ongoing improvement 3. Pyelonephritis - Rocephin - Cultures as above - Will check procalcitonin - Will severity of illness will check BL renal sono to r/o abscess 4. Recent C/S with vaginal bleeding - No fundal tenderness - Vaginal bleeding resolved PPX: Lovenox CODE STATUS: FULL FMR H&P: Upper Level - Plan Date/Time: 02/11/18 1439 Attending Addendum - Attending Addendum Date/Time: 02/11/18 1550 I personally evaluated the patient and discussed the management with Dr. Eckert I agree with the History, Examination, Assessment and Plan documented above with any addition or exceptions noted below. Healthy 27 yo female presents to ER for evaluation of "feeling bad." Patient reports a week long history of no feeling well. Worse starting yesterday. Reports dysuria x 1 wk. Was seen and dx with UTI but antibiotics provided to patient were resistant per sensitivities. Progressed with body aches , low back pain, chills, and N/V on yesterday. + sick contacts at home with GI issues. Alittle more than 6 wks pp from RLTCS. Incision healing well and without compliants. Denies uterine tenderness or pelvic tenderness/pain. Denies vaginal discharge. VS reviewed. Labs reviewed. EKG with sinus tachycardia. Mild CVA tenderness on exam bilaterally but patient does not appear too uncomfortable. Incision well healed. No uterine or abdominal tenderness. 1. Sepsis due to pyelonephiritis: Continue IVFs. Repeat labs in AM. Continue Rocephin based on recent urine culture. Admit to tele. qSOFA = 0. Lovenox ppx. No significant concerns for complicated pyelo. 2. Sinus tachycardia due to infection and mild dehydration 3. mild dehydration: Continue IVFs. Will bolus 1L x2. FloraayMD
[2018-02-11 16:26] VITALS: BMI 31.6
[2018-02-11] MEDS: Acetaminophen 500 MG TAB PO PRN (17:46)
[2018-02-11] MEDS: Lactated Ringer's 1,000 ML IV SCH (17:47)
--- NOTE | 2018-02-11 19:32 | ULT ---
RENAL SONOGRAM 02/11/18 HISTORY: Renal abscess. COMPARISON: None available. FINDINGS: Right kidney measures 15.3 cm x 6.1 cm with the left kidney measuring 13.9 cm x 7.9 cm. There is a heterogeneous but predominantly echogenic mass seen in the inferior pole of the right kidn ey measuring 4 cm in maximal dimensions. There is a larger heterogeneous mass-like structure seen in the superior pole right kidney measuring 5.5 cm. There is a smaller heterogeneous mass-like structure seen within the mid portion right kidney which demonstrates central area of decreased echogenicity a nd surrounding thickened rim of increased echogenicity. A small heterogeneous but predominantly echog enic mass-like structure also seen in the inferior pole kidney measuring 3.8 cm. There is no evidence of hydronephrosis or perinephric fluid collection identified. Multiple gallbladder calculi are seen within the gallbladder lumen. The visualized portions of the ga llbladder on this exam demonstrates no gallbladder wall thickening or pericholecystic fluid; however, this exam was not tailored for evaluation of the gallbladder. The urinary bladder is completely decompressed with Leiva catheter in place. IMPRESSION: 1. Heterogeneous masses in each kidney. Largest heterogeneous mass-like structure seen in the yuan perior pole right kidney measuring 5.5 cm. Given the patient's clinical history, findings could be related to phlegmon and\or renal abscesses. However, CT scan of the abdomen with IV contrast is recom mended for confirmation. 2. Cholelithiasis. POS: [facility]
[2018-02-12] MEDS: Lactated Ringer's 1,000 ML IV SCH ×3 (00:35→16:27)
[2018-02-12] MEDS: Acetaminophen 500 MG TAB PO PRN ×4 (01:38→19:54)
[2018-02-12 04:31] LABS: Anion Gap 11 mmol/L (10-20); BUN (Urea Nitrogen) 7 mg/dL (7.0-18.7); Calc. Creatinine Clearance 187 mL/min (70-130); Calcium 7.9 mg/dL (7.8-10.44); Carbon Dioxide 20 mmol/L (22-29); Chloride 108 mmol/L (98-107); Estimated GFR-MDRD Greater than 90; Glucose 117 mg/dL (70-105); Sodium 136 mmol/L (136-145)
--- NOTE | 2018-02-12 05:25 | PDOC.FM ---
- Subjective Subjective: Reports fever and chills overnight. Denies any pain currently. No other concerns - Objective MAR Reviewed: Yes Vital Signs & Weight: Vital Signs (12 hours) Temp Pulse Resp BP Pulse Ox 02/12/18 04:10 101.5 F H 117 H 18 105/67 100 02/12/18 00:35 100 F H 122 H 18 121/60 100 02/11/18 20:15 100 02/11/18 19:29 98.2 F 111 H 16 96/64 100 Weight Weight 89.04 kg I&O: 02/10/18 02/11/18 02/12/18 06:59 06:59 06:59 Output Total 225 Balance -225 Result Diagrams: 02/12/18 03:47 02/12/18 03:47 <Malika Schaefer - Last Filed: 02/12/18 09:53> - Objective Vital Signs & Weight: Vital Signs (12 hours) Temp Pulse Resp BP Pulse Ox 02/12/18 11:32 97.6 F 119 H 125/89 95 02/12/18 08:13 99.2 F 126 H 117/89 94 L 02/12/18 07:50 100 02/12/18 04:10 101.5 F H 117 H 18 105/67 100 Weight Weight 89.04 kg I&O: 02/11/18 02/12/18 02/13/18 06:59 06:59 06:59 Intake Total 5076 Output Total 225 3300 Balance -225 1776 Result Diagrams: 02/12/18 03:47 02/12/18 03:47 <Lizzette Molina - Last Filed: 02/12/18 15:30> Phys Exam - Physical Examination Constitutional: NAD Respiratory: no wheezing, clear to auscultation bilateral Cardiovascular: RRR, no significant murmur Gastrointestinal: soft, non-tender, positive bowel sounds Psychiatric: normal affect, A&O x 3 <Malika Schaefer - Last Filed: 02/12/18 09:53> Dx/Plan (1) Fever Code(s): R50.9 - FEVER, UNSPECIFIED Status: Acute (2) Pyelonephritis Code(s): N12 - TUBULO-INTERSTITIAL NEPHRITIS, NOT SPCF ACUTE OR CHRONIC Status: Acute (3) Sepsis Code(s): A41.9 - SEPSIS, UNSPECIFIED ORGANISM Status: Acute (4) Tachycardia Code(s): R00.0 - TACHYCARDIA, UNSPECIFIED Status: Acute - Plan Plan: Ms Reddy is a 27 yo female with sepsis 2/2 pyelonephritis Sepsis 2/2 to pyleonephritis - Continued fever with tachycardia - Initially treated in clinic with bactrim (found to be resistant to Bactrim) - Continue Ceftriaxone (02/06 showed sensitivity) - Continue NS @ 250 mL/hr - BCx, UCx pending Pyelonephritis with renal abscess - Continue Ceftriaxone - Renal US 02/11: heterogeneous masses in both kidneys, largest 5.5cm representing abscess or phlegmon - CT for further evaluation awaiting official read - Will likely consult Urology for possible drainage Tachycardia, improving - sinus tach 2/2 sepsis - Continue to monitor Recent C/S with vaginal bleeding - No fundal tenderness - Vaginal bleeding resolved Code Status: FULL DVT ppx: Lovenox <Malika Schaefer - Last Filed: 02/12/18 09:53> Attending Addendum - Attending Addendum Date/Time: 02/12/18 1862 I personally evaluated the patient and discussed the management with Dr. Schaefer. I agree with the History, Examination, Assessment and Plan documented above with any addition or exceptions noted below. Patient is feeling better following fluid resuscitation and antibiotics. Getting CT scan to better visualize kidney. CT shows a mass on the right kidney. Will consult urology. Cultures are pending. Continue IV antibiotics. <Lizzette Molina - Last Filed: 02/12/18 15:30>
[2018-02-12 05:40] LABS: Band 22 % (5-11); Hemoglobin 10.4 g/dL (12.0-16.0); Lymphocytes 10 % (21-51); MDiff Complete? YES; Mean Corpuscular HGB CONC 32.2 g/dL (32.0-36.0); Mean Corpuscular Volume 80.9 fL (78.0-98.0); Mean Platelet Volume 7.2 fL (7.4-10.4); Neutrophil 68 % (42-75); Platelet Count 193 thou/uL (130-400); RBC Distribution Width 12.5 % (11.5-14.5); Red Blood Cell (RBC) Count 4.01 mill/uL (4.20-5.40); White Blood Cell (WBC) Count 13.1 thou/uL (4.8-10.8)
[2018-02-12] MEDS: Enoxaparin Sodium 40 MG/0.4 ML SYRINGE SC SCH (07:41)
[2018-02-12] MEDS: Potassium Chloride 20 MEQ TAB PO SCH ×2 (07:42→17:45)
--- NOTE | 2018-02-12 10:25 | CT ---
CT ABDOMEN AND PELVIS WITH AND WITHOUT IV CONTRAST: Date: 02-12-18 Provided Clinical History: Urinary tract infection and abnormal ultrasound. FINDINGS: There are small bilateral pleural effusions with adjacent subsegmental atelectasis. The liver, spleen, pancreas, and adrenal glands demonstrate a normal CT appearance. There is a 4.8 x 5 cm greatest transverse dimension x 5.8 cm craniocaudal dimension heterogeneously e nhancing solid mass arising from the medial aspect of the superior pole of the right kidney. The righ t renal vein appears patent. There are multifocal areas of diminished enhancement involving the renal parenchyma bilaterally in a pattern compatible with pyelonephritis. There is no evidence for renal abscess. There is a small amount of free intraperitoneal fluid and a small amount of retroperitoneal fluid. Th ere is no bowel dilatation or free air apparent. The osseous structures demonstrate no concerning lytic or blastic lesions. Leiva catheter is noted wi thin the urinary bladder with associated bladder gas. No definite regional lymph node enlargement is seen. IMPRESSION: 1. 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 Urology consultation is recommende d. 2. Bilateral pyelonephritis without evidence for renal abscess. 3. Small bilateral pleural effusions. POS: [facility]
--- NOTE | 2018-02-12 12:09 | CON ---
DATE OF CONSULTATION: 02/12/2018 HISTORY: This is a 27-year-old female who has been here for several days since the , presented w ith fever, chills, sweats and apparently dysuria. Urine is growing what appears to be E. coli. She had fever, chills, and sweats. She is on Rocephin. She has had a foul smelling vaginal discharge as per the primary care physician. SOCIAL HISTORY: He is a nonsmoker, nondrinker. Housewife. PAST SURGICAL HISTORY: Two C-sections. PAST MEDICAL HISTORY: No history of diabetes or hypertension. CHRONIC MEDICATIONS: Ibuprofen. ALLERGIES: None. REVIEW OF SYSTEMS: Otherwise ten point negative. PHYSICAL EXAMINATION: VITAL SIGNS: Blood pressure is 170/89, sats 94 on room air, pulse 126, temperature 99. CHEST: Chest revealed decreased breath sounds, no wheezing. CARDIAC: Normal S1, S2, no gallops. ABDOMEN: Distended and soft. LABORATORY DATA: White count 13,000, H&H 10 and 32, platelet count 193. Electrolytes are normal. Urine shows WBCs in the 50s, presumed Escherichia coli. IMPRESSION: 1. Escherichia coli sepsis. 2. Urinary tract infection. PLAN: I have added Zosyn for Enterococcus coverage. Continue Rocephin. I will follow. This is a consultation note 70 minutes, 50% spent in direct patient care.
[2018-02-12] MEDS: cefTRIAXone\\ROCEPHIN 1 GM in Sodium Chloride 0.9% 100 ML IVPB SCH (12:52)
[2018-02-12] MEDS: Piperacillin/Tazobactam 3.375 GM in Sodium Chloride 0.9% 100 ML IVPB SCH ×3 (12:58→23:45)
[2018-02-12] MEDS: Ibuprofen 800 MG TAB PO PRN ×2 (13:47→21:32)
[2018-02-12] MEDS ORDERED: Sodium Chloride 0.9% 1,000 ML IV STA ×3 (13:51→14:32)
[2018-02-12] MEDS ORDERED: ISOVUE-370 76%-LOCM 1 ML ONE (14:49)
[2018-02-12] MEDS: Sodium Chloride 0.9% 1,000 ML IV SCH ×2 (16:33→23:46)
--- NOTE | 2018-02-12 17:59 | RAD ---
PA AND LATERAL CHEST: Date: 02/12/18 HISTORY: Renal mass. FINDINGS: The cardiac silhouette and pulmonary vasculature are within normal limits. The lungs are clear. Davilla us structures are intact. No discrete pulmonary nodule or mass is identified. IMPRESSION: No acute cardiopulmonary process. POS: [facility]
--- NOTE | 2018-02-12 21:30 | CON ---
DATE OF CONSULTATION: 02/12/2018 REASON FOR CONSULTATION: Renal mass. HISTORY OF PRESENT ILLNESS: The patient is a 27-year-old female who is approximately 6 weeks for an uncomplicated who had a urinary tract infection diagnosed last week in clinic and was sent on 3 days of Bactrim. She has not noticed that she got better or worse, but unfortunately the Bactrim was resistant, and the clinic could not get a hold of her to give her the proper antibiotics, so she overall started having nausea, vomiting, and chills, but thought it was related to a virus or illness that her daughter and had, who also had nausea, vomiting, but they had diarrhea and she did not have diarrhea. She also has some vaginal discharge that had stopped from her , but restarted and was told it could be her first period since the . She continued with fever and chills and even had by reports a fever of 105 and was admitted with concerns for urosepsis. Normally, she has frequency every 2-3 hours, nocturia x1 to 2. She has not had prior urinary tract infections. She has not had gross hematuria, kidney stones , nor significant leakage of urine. On review of systems, she has felt sore all over with some left-sided back pain when questioned, but was not specifically complaining of this. She does not have any shortness of breath, cough, does feel like her fingertips are numb when she has chills with a headache, but no chest pain. She is not constipated. PAST MEDICAL HISTORY: Significant for migraines. PAST SURGICAL HISTORY: Pilonidal cyst. 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 MEDICATIONS: Excedrin as needed and she was taking ibuprofen prior to admission for her malaise. ALLERGIES: No known allergies. SOCIAL HISTORY: Does not smoke, drink or use drugs. FAMILY HISTORY: Mother has atrial fibrillation and maternal grandfather has diabetes. PHYSICAL EXAMINATION: 101.5 (by report 105)/97.6, 119 125/89 95%RA GENERAL: She appears comfortable in the bed. She is alert and oriented. She does have some mild paleness noted. HEENT: She has no scleral icterus. She has no diaphoresis. NECK: No JVD. CARDIOVASCULAR: Regular rhythm, but tachycardic without any murmurs, gallops or rubs. LUNGS: Breath sounds were decreased bilaterally, but without any rhonchi or rales. ABDOMEN: Soft, nondistended, nontender with the incision from the clean, dry, and intact. She had a Lance catheter draining yellow urine. EXTREMITIES: No lower extremity edema. She had no right-sided CVA tenderness, but she did have left CVA tenderness. LABORATORY DATA: Reveal a white count has come down from 21-13 and anemia of 10.4 and 32.4, BUN and creatinine of 7 and 0.64. Her liver function tests are within normal limits. Urinalysis, 02/12/2018, too numerous to count WBCs, 0-3 RBCs, 4+ bacteria, no squamous cells with culture already showing E. coli which was consistent with the prior outpatient culture per reports. Urinalysis from July of this year showed contamination only with a negative culture. There is no chest x-ray to review. Renal ultrasound from 02/11/2018 showed a 2.7 cm area of the left kidney that could be concerning for mass with hyperechogenicity and then a 4.7 cm portion in the right kidney that was also concerning for mass. There was no hydronephrosis or stones. CT scan from 02/12/2018 was reviewed personally without and with contrast showed a 5.8 x 4.8 x 4.9 cm superior pole enhancing mass with Hounsfield units going from 21-74 making it consistent for neoplasm; bilateral decreased perfusion and patchy pattern consistent with pyelonephritis, but no abscess, Lance catheter with air in the bladder. I reviewed with her in detail the findings of the CAT scan and how it is consistent with bilateral pyelonephritis, but unfortunately has also shown what appears to be an incidentally noted concerning lesion in the right kidney with a 90% chance that this could represent cancer. Without other concerns for metastatic disease, we usually don't biopsy renal lesions as they need to come out regardless of the biopsy results. We discussed the size and partial versus complete nephrectomy; however, at this time, it was all becoming a bit overwhelming, so I did not discuss surgery further. I reviewed how I do want to go ahead and proceed with repeat CT scan in 2-3 weeks after the pyelonephritis has improved to ensure that there is no confounding issue related to infection. She will require at least 14 days of antibiotics from a kidney standpoint if her blood cultures are positive--which I presume they will be--she will require 4 weeks of appropriate antibiotic coverage. I would keep the lance in while she is spiking over 101; expect a pyelo fever curve. As long as it does not continually rise for Tmax, then this is not concerning. I will see her again in-house tomorrow to review all of this with her. I will anticipate seeing her in the office with a repeat CT scan as an outpatient. Continue Rocephin and Zosyn for now until this hospital stay's culture is speciated with sensitivities to ensure proper oral/outpatient coverage. YUNIEL
[2018-02-13] MEDS: Acetaminophen 500 MG TAB PO PRN ×4 (02:14→23:51)
[2018-02-13] MEDS: Piperacillin/Tazobactam 3.375 GM in Sodium Chloride 0.9% 100 ML IVPB SCH (05:35)
[2018-02-13] MEDS: Sodium Chloride 0.9% 1,000 ML IV SCH ×4 (05:37→23:53)
[2018-02-13] MEDS: Ibuprofen 800 MG TAB PO PRN ×3 (05:44→22:23)
--- NOTE | 2018-02-13 06:29 | PDOC.FM ---
- Subjective Subjective: Feeling well this morning. Reports last time she had chills, fever, rigors was yesterday afternoon. She understands and verbalized the plan Dr Alejo (Urology ) discussed with her yesterday. Reports trying to stay positive despite the news or order to heal from this infection. Denies SOB, pain, CP. No questions at this time. - Objective MAR Reviewed: Yes Vital Signs & Weight: Vital Signs (12 hours) Temp Pulse Resp BP Pulse Ox 02/13/18 04:19 99.1 F 87 18 113/84 93 L 02/13/18 00:32 99.3 F 95 17 129/77 95 02/12/18 20:00 91 L 02/12/18 19:00 99.7 F H 92 18 112/69 91 L Weight Weight 89.04 kg I&O: 02/11/18 02/12/18 02/13/18 06:59 06:59 06:59 Intake Total 7176 Output Total 225 5800 Balance -225 1376 Result Diagrams: 02/13/18 05:40 02/13/18 05:40 <Malika Schaefer - Last Filed: 02/13/18 09:51> - Objective Vital Signs & Weight: Vital Signs (12 hours) Temp Pulse Resp BP Pulse Ox 02/13/18 11:17 99.7 F H 91 139/100 H 98 02/13/18 07:30 99.3 F 92 132/96 H 99 02/13/18 04:19 99.1 F 87 18 113/84 93 L Weight Weight 90.718 kg I&O: 02/12/18 02/13/18 02/14/18 06:59 06:59 06:59 Intake Total 8642 Output Total 225 6700 Balance -225 1942 Result Diagrams: 02/13/18 05:40 02/13/18 05:40 <Lizzette Molina - Last Filed: 02/13/18 13:19> Phys Exam - Physical Examination Constitutional: NAD Respiratory: no wheezing, clear to auscultation bilateral Cardiovascular: no significant murmur Tachycardic Gastrointestinal: soft, non-tender, positive bowel sounds Psychiatric: normal affect, A&O x 3 <Malika Schaefer - Last Filed: 02/13/18 09:51> Dx/Plan (1) Fever Code(s): R50.9 - FEVER, UNSPECIFIED Status: Acute (2) Pyelonephritis Code(s): N12 - TUBULO-INTERSTITIAL NEPHRITIS, NOT SPCF ACUTE OR CHRONIC Status: Acute (3) Sepsis Code(s): A41.9 - SEPSIS, UNSPECIFIED ORGANISM Status: Acute (4) Tachycardia Code(s): R00.0 - TACHYCARDIA, UNSPECIFIED Status: Acute (5) Right renal mass Code(s): N28.89 - OTHER SPECIFIED DISORDERS OF KIDNEY AND URETER Status: Acute - Plan Plan: Ms Reddy is a 27 yo female with sepsis 2/2 pyelonephritis Sepsis 2/2 to pyleonephritis - Continued fever with tachycardia - Initially treated in clinic with bactrim (found to be resistant to Bactrim) - Continue Ceftriaxone, susceptible on sensitives on cxs in hospital - Continue NS @ 150 mL/hr - UCx with E coli resistent only to Amp & Bactrim - BCx NGTD - Will Discontinue Zosyn, UCx with Ecoli - Continue lance until Fevers consistently <101 Right Renal Mass concerning for Cancer - Renal US 02/11: heterogeneous masses in both kidneys, largest 5.5cm representing abscess or phlegmon - CT: 5.8cm superior superior pole right renal mass compatible with neoplasm. Bilateral pyelo s/o evidence for renal abscess. Small bilateral pleural effusions - Urology Consulted, apprec recs - Will discharge will several weeks of PO antibiotics with plan to repeat CT 2- 3wks after pylonephritis resolves - Will need partial vs complete nephrectomy in the future Tachycardia, improving - sinus tach 2/2 sepsis - Continue to monitor Recent C/S with vaginal bleeding - No fundal tenderness - Vaginal bleeding resolved Code Status: FULL DVT ppx: Lovenox <Malika Schaefer - Last Filed: 02/13/18 09:51> Attending Addendum - Attending Addendum Date/Time: 02/13/18 4818 I personally evaluated the patient and discussed the management with Dr. Schaefer. I agree with the History, Examination, Assessment and Plan documented above with any addition or exceptions noted below. Pt with fever yesterday afternoon. Continuing IV fluids and rocephin. Stopping zosyn as culture is growing e. coli. Will transfer to medical floor. Pt will f/u with urology outpt for further workup of renal mass. <Lizzette Molina - Last Filed: 02/13/18 13:19>
[2018-02-13 06:36] LABS: Hemoglobin 9.4 g/dL (12.0-16.0); Mean Corpuscular HGB CONC 32.2 g/dL (32.0-36.0); Mean Corpuscular Hemoglobin 26.1 pg (27.0-31.0); Mean Platelet Volume 7.6 fL (7.4-10.4); Platelet Count 166 thou/uL (130-400); RBC Distribution Width 12.5 % (11.5-14.5); White Blood Cell (WBC) Count 5.6 thou/uL (4.8-10.8)
[2018-02-13 06:40] LABS: Anion Gap 9 mmol/L (10-20); BUN (Urea Nitrogen) 5 mg/dL (7.0-18.7); Calc. Creatinine Clearance 218 mL/min (70-130); Calcium 7.7 mg/dL (7.8-10.44); Carbon Dioxide 22 mmol/L (22-29); Chloride 111 mmol/L (98-107); Estimated GFR-MDRD Greater than 90; Glucose 91 mg/dL (70-105); Potassium 3.5 mmol/L (3.5-5.1); Sodium 138 mmol/L (136-145)
[2018-02-13 06:58] LABS: Band 11 % (5-11); Eosinophils 1 % (0-10); Lymphocytes 20 % (21-51); MDiff Complete? YES; Monocytes 9 % (0-10); Neutrophil 59 % (42-75)
[2018-02-13] MEDS: Enoxaparin Sodium 40 MG/0.4 ML SYRINGE SC SCH (10:30)
[2018-02-13] MEDS: Potassium Chloride 20 MEQ TAB PO SCH ×2 (10:30→17:39)
--- NOTE | 2018-02-13 11:38 | PRG ---
DATE OF SERVICE: 02/13/2018 SUBJECTIVE: The patient is feeling much better and eager to be able to see her children. She has no significant pain. PHYSICAL EXAMINATION: VITAL SIGNS: Her vitals have been improving. Her T-max was 102.6 yesterday and current 99.1, heart rate has now come down to the 90s and even 87, blood pressure is stable. She had great diuresis of more than 6 liters via the Lance which is draining yellow urine. Labs have continued to improve with a white count of 5.6, creatinine of 0.56, and a culture that shows E. coli that is sensitive to Cipro. We then reviewed her renal findings again based on the CT scan and we discussed how in 2-3 weeks I would repeat imaging and see her in the office to make plans accordingly. ASSESSMENT AND PLAN: 27y/o female with bilateral pyelo and urosepsis improving. Cont lance until T<101 x24h. I would suggest Cipro as an outpatient , and she should continue at least 2 weeks of it and if blood cultures are positive, 4 weeks of it. All questions were answered. My staff will call her next week to set up followup. YUNIEL
[2018-02-13] MEDS: cefTRIAXone\\ROCEPHIN 1 GM in Sodium Chloride 0.9% 100 ML IVPB SCH (12:08)
--- NOTE | 2018-02-13 12:48 | PRG ---
DATE OF SERVICE: 02/13/2018 SUBJECTIVE: This morning, she is better. E. coli sepsis SENSITIVE TO present on antibiotics. OBJECTIVE: VITAL SIGNS: Temperature 99, sats are 100% on room air, [id number]_, blood pressure 130/96. CHEST: Decreased breath sounds, no wheezing. CARDIAC: Normal S1 and S2. No gallops. ABDOMEN: Soft, no masses. LABORATORY DATA: Labs are unremarkable. Bandemia has improved. IMPRESSION: Escherichia coli sepsis, improved. PLAN: Continue Rocephin. Discontinue Zosyn. She can be transferred out of the MICU. PEGGYD
[2018-02-14 05:16] LABS: #Basophils 0.1 thou/uL (0.0-0.2); #Monocytes 0.4 thou/uL (0.11-0.59); #Neutrophils 2.3 thou/uL (1.40-6.50); %Basophils 2.1 % (0.0-1.0); %Lymphocytes 26.3 % (21.0-51.0); %Monocytes 10.6 % (0.0-10.0); %Neutrophils 60.1 % (42.0-75.0); Hemoglobin 9.9 g/dL (12.0-16.0); Mean Corpuscular HGB CONC 31.9 g/dL (32.0-36.0); Mean Corpuscular Hemoglobin 25.7 pg (27.0-31.0); Mean Corpuscular Volume 80.7 fL (78.0-98.0); Mean Platelet Volume 7.3 fL (7.4-10.4); Platelet Count 190 thou/uL (130-400); RBC Distribution Width 12.6 % (11.5-14.5); Red Blood Cell (RBC) Count 3.84 mill/uL (4.20-5.40); White Blood Cell (WBC) Count 3.8 thou/uL (4.8-10.8)
[2018-02-14 05:37] LABS: Anion Gap 8 mmol/L (10-20); BUN (Urea Nitrogen) 6 mg/dL (7.0-18.7); Calc. Creatinine Clearance 211 mL/min (70-130); Calcium 7.8 mg/dL (7.8-10.44); Carbon Dioxide 21 mmol/L (22-29); Chloride 112 mmol/L (98-107); Estimated GFR-MDRD Greater than 90; Glucose 88 mg/dL (70-105); Potassium 3.6 mmol/L (3.5-5.1); Sodium 137 mmol/L (136-145)
[2018-02-14] MEDS: Ibuprofen 800 MG TAB PO PRN (05:56)
[2018-02-14] MEDS: Acetaminophen 500 MG TAB PO PRN (05:56)
--- NOTE | 2018-02-14 06:27 | PDOC.FM ---
- Subjective Subjective: Pt reports she is feeling well. Leiva removed yesterday and has been urinating yellow/clear without dysuria. Last fever was afternoon. Has felt chilled with sweats at times, though afebrile. Pt believes tylenol and motrin have helped. Tolerating PO intake well. - Objective MAR Reviewed: Yes Vital Signs & Weight: Vital Signs (12 hours) Temp Pulse Resp BP Pulse Ox 02/13/18 23:03 98 F 77 18 121/86 94 L 02/13/18 19:45 98.6 F 92 18 142/91 H 92 L Weight Weight 90.718 kg I&O: 02/12/18 02/13/18 02/14/18 06:59 06:59 06:59 Intake Total 8642 4120 Output Total 225 6700 1100 Balance -225 1941 3020 Result Diagrams: 02/14/18 04:42 02/14/18 04:42 <Noemí Garnica - Last Filed: 02/14/18 07:48> - Objective Vital Signs & Weight: Vital Signs (12 hours) Temp Pulse Resp BP Pulse Ox 02/14/18 08:00 98.4 F 89 16 121/87 98 Weight Weight 90.718 kg I&O: 02/13/18 02/14/18 02/15/18 06:59 06:59 06:59 Intake Total 8642 4120 Output Total 6700 1100 Balance 1942 3020 Result Diagrams: 02/14/18 04:42 02/14/18 04:42 <Lizzette Molina - Last Filed: 02/14/18 15:40> Phys Exam - Physical Examination Constitutional: NAD HEENT: moist MMs Respiratory: no wheezing, no rales, no rhonchi, clear to auscultation bilateral Cardiovascular: RRR, no significant murmur Gastrointestinal: soft, non-tender, no distention, positive bowel sounds Musculoskeletal: no edema, pulses present Neurological: non-focal, moves all 4 limbs Psychiatric: normal affect Skin: no rash, normal turgor, cap refill <2 seconds <Noemí Garnica - Last Filed: 02/14/18 07:48> Dx/Plan (1) Fever Code(s): R50.9 - FEVER, UNSPECIFIED Status: Resolved (2) Pyelonephritis Code(s): N12 - TUBULO-INTERSTITIAL NEPHRITIS, NOT SPCF ACUTE OR CHRONIC Status: Acute (3) Right renal mass Code(s): N28.89 - OTHER SPECIFIED DISORDERS OF KIDNEY AND URETER Status: Acute (4) Sepsis Code(s): A41.9 - SEPSIS, UNSPECIFIED ORGANISM Status: Resolved (5) Tachycardia Code(s): R00.0 - TACHYCARDIA, UNSPECIFIED Status: Resolved - Plan Plan: 27 yo female with sepsis 2/2 pyelonephritis found to have R renal mass Sepsis 2/2 to pyleonephritis, improving - Afebrile since 02/12 afternoon, Leiva discontinued yesterday - Initially treated in clinic with bactrim (found to be resistant to Bactrim) - Zosyn (d/c 02/12), d/c ceftriaxone today--> transition to cipro. Bcx NGTD, PO cipro upon d/c for 2 wks - Tolerating PO intake well, d/c IVF - UCx with E coli resistant only to Amp & Bactrim Right Renal Mass concerning for Cancer - Renal US 02/11: heterogeneous masses in both kidneys, largest 5.5cm representing abscess or phlegmon - CT: 5.8cm superior superior pole right renal mass compatible with neoplasm. Bilateral pyelo s/o evidence for renal abscess. Small bilateral pleural effusions - Urology Consulted, apprec recs: plan to repeat CT 2-3wks after discharge and f /u in clinic - Will need partial vs complete nephrectomy in the future Tachycardia, resolved - sinus tach 2/2 sepsis - Continue to monitor Recent C/S with vaginal bleeding - No fundal tenderness - Vaginal bleeding resolved - patient is Code Status: FULL DVT ppx: Lovenox Dispo: plan for dc today <Noemí Garnica - Last Filed: 02/14/18 07:48> Attending Addendum - Attending Addendum Date/Time: 02/14/18 0963 I personally evaluated the patient and discussed the management with Dr. Garnica. I agree with the History, Examination, Assessment and Plan documented above with any addition or exceptions noted below. Pt is feeling much better. Pain resolved, no new fever. Will d/c home with 2 weeks of cipro. Pt will f/u with Dr. Alejo on workup of renal mass. <Lizzette Molina - Last Filed: 02/14/18 15:40>
[2018-02-14] MEDS: Sodium Chloride 0.9% 1,000 ML IV SCH (06:47)
[2018-02-14 08:15] VITALS: BP 121/87; TEMP 98.4
[2018-02-14] MEDS: Enoxaparin Sodium 40 MG/0.4 ML SYRINGE SC SCH (08:21)
[2018-02-14] MEDS: Potassium Chloride 20 MEQ TAB PO SCH (08:22)
--- NOTE | 2018-02-15 22:06 | DIS-2 ---
DATE OF ADMISSION: 02/11/2018 DATE OF DISCHARGE: 02/14/2018 RESIDENT: Noemí Garnica DO ADMITTING ATTENDING: Coty Dawn M.D. DISCHARGE ATTENDING: Lizzette Molina M.D. CONSULTATIONS: 1. Urology, Dr. Alejo. 2. Pulmonology/critical care, Dr. Nielsen. PROCEDURES: 1. CT abdomen and pelvis with and without contrast showed 5.8 cm superior pole right renal mass comp atible with neoplasm. Bilateral pyelonephritis without evidence for renal abscess. Small bilateral pleural effusions. 2. Renal ultrasound on 02/11/2018 showed heterogeneous masses in each kidney. Large heterogeneous m ass-like structure seen in superior pole of right kidney measuring 5.5 cm 3. Cholelithiasis. 4. Chest x-ray 02/12/2018 showed no acute cardiopulmonary process. PRIMARY DIAGNOSES: 1. Sepsis. 2. Pyelonephritis. 3. Right renal mass concerning for cancer. 4. Tachycardia. SECONDARY DIAGNOSES: Recent section, . DISCHARGE MEDICATIONS: 1. Acetaminophen 1000 mg p.o. q.6 hours p.r.n. 2. Ibuprofen 800 mg p.o. q.8 hours p.r.n. 3. Zofran 4 mg p.o. q.6 hours p.r.n. 4. Ciprofloxacin 500 mg p.o. q.12 hours for 14 days, #28. DISCONTINUED MEDICATIONS: Ibuprofen 200 mg p.o. q.8 hours p.r.n. HOSPITAL COURSE: The patient presented with a 1-week history of dysuria, vaginal bleeding and fever. She was seen in the outpatient setting and failed outpatient antibiotic treatment. Also presented with nausea, vomiting. The patient was diagnosed with sepsis secondary to pyelonephritis and was sta rted on IV antibiotics and fluid resuscitation. The patient continued to have high fevers. Renal ma ss was noted on ultrasound and confirmed on CT. Dr. Alejo, Urology was consulted. She will follow up with the patient in the outpatient setting in 2-3 weeks, accompanied by repeat CT scan for mass. Patient's symptoms continued to improve throughout her hospitalization, and she was stable for discha rge on oral antibiotics for 2 weeks considering blood cultures were negative. Urine culture grew E. coli sensitive to CIPROFLOXACIN. DISPOSITION: Stable. DISCHARGE INSTRUCTIONS: 1. Location: Home. 2. Diet: Regular. 3. Activity: As tolerated. 4. Follow up with your PCP in 7 days. 5. Follow up with Dr. Alejo, Urology in 2-3 weeks.
== END 2018-02-14 11:15 | disposition home or self-care (01) | DRG 872 ==
LOC: ERS 12:17 → IMCU/EMU 16:15 → T4-B 02-13 14:08
PROVIDERS: ADMIT Family Medicine; ATTEND Family Medicine
DX: A41.51 Sepsis due to Escherichia coli [E. coli] (principal); N39.0 Urinary tract infection, site not specified
CPT/HCPCS: 36415; 51702; 71046; 74178; 76770; 80048; 80053; 81003; 81015; 83605; 83690; 83735; 84145; 85025; 87040; 87077; 87086; 87186; 93005; 96365; 96367; 96375; A4216; J0696; J1650; J1885; J2405; J2543; J3370; J7050

== ENCOUNTER 2018-03-06 09:04 | Outpatient (CLI) | payer OTHER ==
--- NOTE | 2018-03-06 11:18 | CT ---
CT ABDOMEN WITH AND WITHOUT IV CONTRAST: Date: 03/06/18 HISTORY: Renal mass. Patient initially had CT obtained on 02/12/18 secondary to fever, body aches, and painful urination. However, the patient has been treated with antibiotics and is clinically improving. COMPARISON: 02/12/18. FINDINGS: The previously described superior pole heterogeneously enhancing right renal mass is again seen, comp atible with neoplastic process and possibly renal cell carcinoma. Urological consultation is suggeste d if this has not been performed. The diminished areas of attenuation involving the anterior aspect mid portion and inferior pole right kidney is again seen, but the area is smaller in size. Low density area in the posterior aspect of m id portion of left kidney is also again seen, but improved. Perinephric inflammatory changes and stra nding has also resolved. Findings are likely related to improving pyelonephritis. There is no fluid c ollection seen to suggest an abscess on this exam. Lung bases are clear. No pulmonary nodule is seen. The liver, spleen, pancreas, and bilateral adrenal glands, as well as abdominal aorta, demonstrate a normal CT appearance. The appendix is visualized and normal in caliber. No enlarged lymph nodes are seen by CT size criteria. No lytic or sclerotic osseous lesions are identified. IMPRESSION: 1. Stable superior pole right renal mass, compatible with neoplasm. Urological consultation is recom mended. 2. Improvement in hypodense areas within each kidney, as well as resolution of bilateral perinephric inflammatory changes and stranding, and findings are likely attributable to improving pyelonephritis . the low density areas do persist, although smaller in size within each kidney. 3. Resolution of bilateral pleural effusions, as well as small amount of free fluid in the abdomen. POS: [facility]
== END 2018-03-06 09:05 | disposition home or self-care (01) ==
LOC: BICCT 09:04
PROVIDERS: ATTEND Urology
DX: N28.89 Other specified disorders of kidney and ureter (principal)
CPT/HCPCS: 74170

== ENCOUNTER 2018-03-16 15:53 | Outpatient (CLI) | payer OTHER ==
[2018-03-16 17:13] LABS: BHCG - Serum Negative (NEGATIVE); Pregs Control Background? CLEAR/WHITE (CLR/WHITE); Pregs Control Bar Appear? YES (CONTROL BAR)
[2018-03-16 17:20] LABS: Hemoglobin 11.8 g/dL (12.0-16.0); Mean Corpuscular HGB CONC 32.9 g/dL (32.0-36.0); Mean Corpuscular Hemoglobin 25.7 pg (27.0-31.0); Mean Corpuscular Volume 78.4 fL (78.0-98.0); Mean Platelet Volume 6.8 fL (7.4-10.4); Platelet Count 334 thou/uL (130-400); RBC Distribution Width 13.7 % (11.5-14.5); Red Blood Cell (RBC) Count 4.58 mill/uL (4.20-5.40); White Blood Cell (WBC) Count 6.5 thou/uL (4.8-10.8)
[2018-03-16 17:30] LABS: ALT (SGPT) 12 U/L (8-55); AST (SGOT) 14 U/L (5-34); Albumin 4.4 g/dL (3.5-5.0); Alkaline Phosphatase 90 U/L (40-150); Anion Gap 12 mmol/L (10-20); BUN (Urea Nitrogen) 14 mg/dL (7.0-18.7); Bilirubin, Total 0.2 mg/dL (0.2-1.2); Calc. Creatinine Clearance 0 mL/min (70-130); Calcium 9.5 mg/dL (7.8-10.44); Carbon Dioxide 25 mmol/L (22-29); Chloride 105 mmol/L (98-107); Estimated GFR-MDRD Greater than 90; Globulin 3.7 g/dL (2.4-3.5); Glucose 100 mg/dL (70-105); Potassium 3.7 mmol/L (3.5-5.1); Protein, Total 8.1 g/dL (6.0-8.3); Sodium 138 mmol/L (136-145)
== END 2018-03-16 15:54 | disposition home or self-care (01) ==
LOC: LABBT 15:53
PROVIDERS: ATTEND Urology
DX: Z01.812 Encounter for preprocedural laboratory examination (principal); N28.89 Other specified disorders of kidney and ureter
CPT/HCPCS: 80053; 81001; 84703; 85027; 87086

== ENCOUNTER 2018-03-16 16:00 | Inpatient (IN) | payer MEDICAID, OTHER ==
[2018-03-24] MEDS ORDERED: CEFAZOLIN 2 GM/50 ML BAG ONE (06:21)
[2018-03-24] MEDS ORDERED: Bupivacaine PF 0.5% 30 ML VIAL ONE (06:32)
[2018-03-24] MEDS ORDERED: Ropivacaine 0.5% HCl/PF (150 MG/30 ML VIAL) ONE (06:35)
[2018-03-24] MEDS ORDERED: Fentanyl 100 MCG/2 ML VIAL ONE ×2 (06:43→06:57)
[2018-03-24] MEDS ORDERED: Phenylephrine HCL 10 MG/ML VIAL ONE (06:44)
[2018-03-24] MEDS ORDERED: Midazolam HCl 2 mg/2 ml Vial ONE (06:57)
[2018-03-24] MEDS ORDERED: diphenhydrAMINE 50 MG/ML VIAL IM PRN (08:15)
[2018-03-24] MEDS ORDERED: Hydrocerin (Eucerin) Cream 120 gm Jar TOP PRN (08:15)
[2018-03-24] MEDS ORDERED: diphenhydrAMINE 25 MG CAP PO PRN (08:15)
[2018-03-24] MEDS ORDERED: Ondansetron PF 4 MG/2 ML Vial IVP PRN ×2 (08:15→12:24)
[2018-03-24] MEDS ORDERED: traMADol HCl 50 MG TAB PO PRN (08:15)
[2018-03-24] MEDS ORDERED: HYDROcodone/Acetaminophen 5/325 mg Tablet PO PRN ×2 (08:15)
[2018-03-24] MEDS ORDERED: Naloxone HCl 0.4 mg/ml Vial IVP PRN (08:15)
[2018-03-24] MEDS ORDERED: Promethazine HCl 25 MG SUPP PR PRN (08:15)
[2018-03-24] MEDS ORDERED: Promethazine HCl 25 MG/ML VIAL IM PRN ×2 (08:15→11:24)
[2018-03-24] MEDS ORDERED: Naloxone HCl 0.4 mg/ml Vial IV PRN (08:15)
[2018-03-24] MEDS ORDERED: diphenhydrAMINE 50 MG/ML VIAL IVP PRN (08:15)
[2018-03-24] MEDS ORDERED: Zolpidem Tartrate 5 MG TAB PO PRN (08:15)
[2018-03-24] MEDS ORDERED: Bupivacaine 0.25% 10 ML VIAL EPIDURAL PRN (08:15)
[2018-03-24] MEDS ORDERED: Fentanyl/Bupivacaine 100 ML EPIDURAL SCH (08:15)
[2018-03-24] MEDS ORDERED: Ondansetron HCl/PF 4 MG/2 ML Vial IVP PRN (11:24)
[2018-03-24] MEDS ORDERED: Promethazine HCl 25 MG/ML VIAL SLOW IVP PRN (11:24)
[2018-03-24] MEDS ORDERED: diphenhydrAMINE 50 MG in Sodium Chloride 0.9% 50 ML IVPB PRN (12:24)
[2018-03-24] MEDS ORDERED: Ondansetron PF 4 MG/2 ML Vial ONE ×2 (12:53→13:46)
[2018-03-24] MEDS ORDERED: Scopolamine 1.5 mg/72 hour Patch ONE (12:58)
[2018-03-24] MEDS ORDERED: ePHEDrine/0.9% NaCl/PF SYRINGE 50 mg/10 ml ONE (13:46)
[2018-03-24] MEDS ORDERED: PROPOFOL 200 MG/20 ML VIAL ONE (13:46)
[2018-03-24] MEDS ORDERED: PHENYLEPHRINE-NS 100 MCG/ML 10 ML SYRINGE ONE (13:46)
[2018-03-24] MEDS ORDERED: Dexamethasone 20 MG/5 ML VIAL ONE (13:46)
[2018-03-24] MEDS ORDERED: Glycopyrrolate 0.2 MG/ML 5 ML SYRINGE ONE (13:46)
[2018-03-24] MEDS ORDERED: Lidocaine 1% PF 5 ML VIAL ONE (13:46)
[2018-03-24 14:28] LABS: Potassium 3.4 mmol/L (3.5-5.1)
[2018-03-24] MEDS ORDERED: Potassium Chloride 20 MEQ TAB PO SCH (14:45)
[2018-03-24] MEDS ORDERED: Heparin 5,000 UNITS/ML VIAL ONE (15:29)
[2018-03-24] MEDS ORDERED: Promethazine HCl 25 MG/ML VIAL ONE (16:22)
--- NOTE | 2018-03-24 16:57 | OP ---
DATE OF SERVICE: 03/24/2018 PREOPERATIVE DIAGNOSIS: Right renal mass. POSTOPERATIVE DIAGNOSIS: Right renal mass. PROCEDURE: Hand-assisted laparoscopic nephrectomy on the right. SURGEON: Paola Alejo MD REEL SYSTEM OPERATOR: Dr. Diez. ESTIMATED BLOOD LOSS: 25 mL. URINE OUTPUT: 425. CRYSTALLOID: 2 liters. SPECIMENS: Right kidney. COMPLICATIONS: None. DRAINS: No drains, except an indwelling Leiva. COMPLICATIONS: None. INDICATIONS: Patient is a 27-year-old female who was seen in the hospital for bilateral pyelonephrit is with concern for renal mass and on followup after healing from her infection. A dedicated CT of t he abdomen was performed and revealed a concerning 6 cm mass. We discussed partial versus complete n ephrectomy; however, the mass was in such a location that it would require at least a half lobectomy, heminephrectomy and I was concerned that the lesion itself was pushing down on the main renal vein, so we opted for a complete nephrectomy. TECHNIQUE: The patient was brought into the room by Anesthesia, laid on the table in supine position , after receiving general anesthetic. She was positioned on semilateral with all positioned points p added and then taped securely to the table in multiple position points. An incision was made in the right lower quadrant, taken down to the fascia and then the peritoneum which was opened and this was widened enough to go in a hand port with a gel cover was then placed. Insufflation occurred and then 2 more 10-12 mm ports were then placed in the midline, one just above the umbilicus and the other in the epigastric region and then a 5 mm liver retractor was placed in the right upper quadrant. A sma ll adhesion of the bowel and the abdominal wall was taken down and then the colon itself was mobilize d to reveal the kidney. The duodenum was fairly medial, exposing the IVC without much need for any k ocherization at the inferior portion of the kidney, the subcutaneous tissue was taken down to the pso as and then dissected medially until the gonadal vein was noted. Further dissection occurred to allo w identification of the ureter and I was able to transect this while preserving the gonadal. Then, d issection occurred more superiorly toward the renal hilum, carefully going through multiple layers to expose the main renal vein and artery of which she had 1 each. Then, further dissection occurred on the inferior and posterior portion of the kidney such that the hand could get underneath that and is olate the renal vessels themselves. Then, care was taken to dissect down on my finger superior to th e renal vein in order to isolate this. At this point, the vascular staple was deployed. There was o nly a small portion remaining and did not appear to be a portion of the renal artery or vein, but thi s was used for a second vascular stapler. Then, the hilum was set clearly free and with good hemosta sis noted and then dissection occurred in the anterior portion of the kidney itself. The liver had a lready been taken down with attachments and the lateral wall and these more superior attachments of t he hepatorenal ligaments were taken down and pushing somewhat hard in this portion of backbleeding an d was noted, so care was taken not to apply too much pressure to the superior pole and then further d issecting this area, a small portion of normal adrenal gland was noted and appeared to be free of any sort of concern for tumor so remained in place. The soft tissue was then gone through with further cara just in case there were any adrenal vessels in this area and then there was only a small port ion of soft tissue that was remaining attached and the LigaSure was used to further dissect this and at this point the whole kidney was free. A bag was placed through the GelPort. The kidney was place d inside the bag and then removed in its entirety. I examined the renal vein and made sure there was no concern for any tumor, transection and this was free of any concern, so the specimen was then sen t to pathology. Attention was turned back to the nephrectomy bed site where the renal vessels were c learly hemostatic and appeared in good condition. There was a small portion of the region near the a drenal bed. The pressure was held, FloSeal was mixed and then FloSeal was placed and no concern for bleeding and hemostasis was achieved. Some irrigation had already been performed at this point and s o the colon was pushed back over into its normal position. All the ports were removed without incide nt and then the 10-12 ports were closed with a 2-0 Vicryl at the fascial level and then the hand port was closed with #1 PDS in running fashion initially getting the peritoneum in with it and then on th e lateral portion of the external oblique another 0 PDS was used to reapproximate these edges. Then, 3-0 Vicryl was used to reapproximate the dermis on the 10-12 hand port and then 4-0 Monocryl was use d in subcuticular fashion on the skin. Steri-Strips and a sterile dressing were applied. The patien t was then awakened and transferred to the PACU in stable condition.
[2018-03-24] MEDS: Lactated Ringer's 1,000 ML IV SCH ×2 (17:38→23:28)
[2018-03-24] MEDS: Acetaminophen 500 MG TAB PO SCH ×4 (17:53→23:29)
[2018-03-24] MEDS: Heparin 5,000 UNITS/ML VIAL SC SCH ×2 (17:53→21:55)
[2018-03-24 17:57] VITALS: BMI 31.8
[2018-03-24] MEDS: Famotidine/PF 20 mg/2ml Vial SLOW IVP SCH (21:56)
[2018-03-24] MEDS: Docusate 100 MG CAP PO SCH (21:56)
[2018-03-25 06:12] LABS: Anion Gap 10 mmol/L (10-20); BUN (Urea Nitrogen) 11 mg/dL (7.0-18.7); Calc. Creatinine Clearance 134 mL/min (70-130); Calcium 8.9 mg/dL (7.8-10.44); Carbon Dioxide 27 mmol/L (22-29); Chloride 104 mmol/L (98-107); Estimated GFR-MDRD 76; Glucose 101 mg/dL (70-105); Potassium 4.4 mmol/L (3.5-5.1); Sodium 137 mmol/L (136-145)
[2018-03-25] MEDS: Acetaminophen 500 MG TAB PO SCH ×3 (06:14→18:25)
[2018-03-25] MEDS: Lactated Ringer's 1,000 ML IV SCH ×3 (06:15→16:31)
[2018-03-25] MEDS: Famotidine/PF 20 mg/2ml Vial SLOW IVP SCH ×2 (09:01→20:29)
[2018-03-25] MEDS: Docusate 100 MG CAP PO SCH ×2 (09:03→20:29)
[2018-03-25] MEDS: Heparin 5,000 UNITS/ML VIAL SC SCH ×3 (09:03→23:32)
--- NOTE | 2018-03-25 09:53 | PRG ---
DATE OF SERVICE: 03/25/2018 SUBJECTIVE: The patient's headache is much better. She had some nausea and dry heaves earlier that caused significant pain, but otherwise her pain is controlled. She has already been up and ambulatin g. She has minimal burping, but no flatus. OBJECTIVE: VITAL SIGNS: Her vital signs have been stable. T-max 99.7, heart rate 99, blood pressure 129/87, 98 % on room air. She put 1400 out overnight. GENERAL: She is comfortable in the bed. HEART: Regular rate, borderline tachycardia with regular rhythm. LUNGS: Clear to auscultation bilaterally. ABDOMEN: Soft, nondistended, nontender. Hypoactive bowel sounds. Incisions with dressings dry and intact with minimal blood noted on 2 of the midline incisions. EXTREMITIES: No lower extremity edema. : Her urine was clear coming through the Leiva catheter. LABORATORY DATA: Reveal BUN and creatinine 11 and 0.90. Her H&H are stable at 11.0 and 34.4. Her p otassium improved from 3.4 yesterday to 4.4. ASSESSMENT: We have a 27-year-old female status post right hand assist laparoscopic nephrectomy, pos toperative day #1, doing well. We can get rid of her epidural and switch over to IV pain medicine an d hold off on a diet until she passes flatus. Continue ambulation and incentive spirometry, and vinny tor. Once the epidural is out we will anticipate getting the Leiva catheter out.
[2018-03-25] MEDS ORDERED: Morphine 2 MG/ML SYRINGE SLOW IVP PRN ×2 (12:01→14:37)
[2018-03-25] MEDS: traMADol HCl 50 MG TAB PO PRN ×2 (13:34→22:17)
[2018-03-25] MEDS ORDERED: Morphine 4 MG/ML VIAL SLOW IVP PRN (14:37)
[2018-03-26] MEDS: Acetaminophen 500 MG TAB PO SCH ×3 (00:27→11:51)
[2018-03-26] MEDS: Lactated Ringer's 1,000 ML IV SCH ×2 (00:28→08:40)
[2018-03-26] MEDS: Famotidine/PF 20 mg/2ml Vial SLOW IVP SCH (08:40)
[2018-03-26] MEDS: Heparin 5,000 UNITS/ML VIAL SC SCH ×2 (08:40→16:30)
[2018-03-26] MEDS: Docusate 100 MG CAP PO SCH (08:40)
[2018-03-26] MEDS ORDERED: D5 1/2 NS w/10 mEq KCl 1,000 ML/1,000 ML BAG IV SCH (09:00)
--- NOTE | 2018-03-26 09:55 | PRG ---
DATE OF SERVICE: 03/26/2018 SUBJECTIVE: The patient did well overnight. She has had no complaints. The catheter came out. She has been voiding without difficulty. The epidural came out and initially there was some concern for pain control, but that has since been alleviated and she has tolerated her current regimen well. She is ambulating without difficulty. She has had no nausea or burping, but still no flatus. PHYSICAL EXAMINATION: VITAL SIGNS: Have been stable and showed, T-max 99.1. Most recently, her blood pressure is 142/91 with heart rate of only 74, 97% on room air. GENITOURINARY: She had between 3 and 4 liters out between the catheter and voiding and she is comfortable in the bed. ABDOMEN: Softly distended with hypoactive bowel sounds. Incisions were clean, dry, and intact and the dressings were removed, leaving only the steri-strips intact. ASSESSMENT: We have a 27-year-old female status post right hand-assisted laparoscopic nephrectomy, now postop day #2, doing well, awaiting bowel function return. PLAN: Continue monitoring change of fluids over to maintenance and ambulate. MTDD
[2018-03-26 12:13] VITALS: BP 131/82; TEMP 99
--- NOTE | 2018-03-27 13:10 | DIS ---
DATE OF ADMISSION: 03/24/2018 DATE OF DISCHARGE: 03/26/2018 ADMISSION DIAGNOSIS: Right renal mass. DISCHARGE DIAGNOSES: Right renal mass, status post right-hand assist laparoscopic nephrectomy for cl ear cell carcinoma. Please see the patient's H and P for full details of her history prior to admission. She was admitte d on 03/24/2018 and underwent right hand-assist laparoscopic nephrectomy without any significant comp lications, and postoperatively, did well. Her pain was controlled. She was ambulating and her bowel function had returned, so she was discharged home. Her final pathology came back at 5 cm of clear c ell renal cell carcinoma, Pam grade 2, limited to the kidney without any lymphovascular or renal vein involvement, given her stage pT1b. She will follow up in the office as an outpatient.
== END 2018-03-26 15:41 | disposition home or self-care (01) | DRG 658 ==
LOC: SURG A 03-24 06:00
PROVIDERS: ADMIT Urology; ATTEND Urology
PROC: 0TT04ZZ Resection of Right Kidney, Percutaneous Endoscopic Approach (ICD-10-PCS; principal; 2018-03-24)
DX: C64.1 Malignant neoplasm of right kidney, except renal pelvis (principal)
CPT/HCPCS: 36415; 80048; 84132; 85014; 85018; 88307; 96372; J0131; J1200; J1644; J2250; J2270; J2370; J2405; J2550; J2795; J3010; S0020; S0028

== ENCOUNTER 2018-03-20 15:40 | Outpatient (CLI) | payer OTHER, SELFPAY | END 2018-03-20 15:41 | disposition home or self-care (01) | LOC: LABBT 15:40 | PROVIDERS: ATTEND Urology | DX: Z01.812 Encounter for preprocedural laboratory examination (principal); N28.89 Other specified disorders of kidney and ureter | CPT/HCPCS: 86850; 86900; 86901 ==

== ENCOUNTER 2018-04-06 19:05 | Emergency (ER) | payer OTHER ==
[~2018-04-06 19:05] MED LIST: ISOVUE-370 76%-LOCM 1 ML ONE
[2018-04-06 19:54] LABS: #Basophils 0.1 thou/uL (0.0-0.2); #Eosinphils 0.3 thou/uL (0.0-0.7); #Lymphocytes 2.9 thou/uL (1.20-3.40); #Monocytes 0.7 thou/uL (0.11-0.59); #Neutrophils 4.2 thou/uL (1.40-6.50); %Eosinophils 3.7 % (0.0-10.0); %Lymphocytes 35.2 % (21.0-51.0); %Monocytes 8.3 % (0.0-10.0); %Neutrophils 51.8 % (42.0-75.0); Hemoglobin 11.6 g/dL (12.0-16.0); Mean Corpuscular HGB CONC 32.9 g/dL (32.0-36.0); Mean Corpuscular Hemoglobin 25.7 pg (27.0-31.0); Mean Corpuscular Volume 78.1 fL (78.0-98.0); Mean Platelet Volume 6.4 fL (7.4-10.4); Platelet Count 426 thou/uL (130-400); RBC Distribution Width 13.6 % (11.5-14.5); White Blood Cell (WBC) Count 8.1 thou/uL (4.8-10.8)
[2018-04-06 20:11] LABS: BHCG - Serum Negative (NEGATIVE); Pregs Control Background? CLEAR/WHITE (CLR/WHITE); Pregs Control Bar Appear? YES (CONTROL BAR)
[2018-04-06 20:15] LABS: ALT (SGPT) 14 U/L (8-55); AST (SGOT) 15 U/L (5-34); Albumin 4.4 g/dL (3.5-5.0); Alkaline Phosphatase 91 U/L (40-150); Anion Gap 13 mmol/L (10-20); BUN (Urea Nitrogen) 19 mg/dL (7.0-18.7); Bilirubin, Total 0.2 mg/dL (0.2-1.2); Calc. Creatinine Clearance 0 mL/min (70-130); Calcium 9.7 mg/dL (7.8-10.44); Carbon Dioxide 29 mmol/L (22-29); Chloride 103 mmol/L (98-107); Estimated GFR-MDRD 74; Globulin 3.8 g/dL (2.4-3.5); Glucose 96 mg/dL (70-105); Potassium 4.5 mmol/L (3.5-5.1); Protein, Total 8.2 g/dL (6.0-8.3); Sodium 140 mmol/L (136-145)
[2018-04-06] MEDS ORDERED: Cephalexin 250 MG CAP ONE (21:29)
--- NOTE | 2018-04-06 22:40 | CT ---
CT ABDOMEN AND PELVIS WITH CONTRAST: Technique: Multiple contiguous axial images were obtained through the abdomen and pelvis with IV enha ncement. Indications: Recent right nephrectomy. Surgical wound drainage. Comparison: 03-06-18 FINDINGS: Lung bases clear. Liver, spleen, and pancreas unremarkable. Patient is post right nephrectomy. Small amount of fluid density in the right renal bed and along the posterior margin of the liver at Jones's pouch. No evidence of loculated fluid or abscess. Left kidney unremarkable. Small bowel loops appear normal. The appendix is identified and shows air within its lumen. The tip of the appendix shows some mild in flammatory change surrounding the tip. This is very nonspecific, but could potentially represent an e steve tip appendicitis. Follow up is suggested if there is right lower quadrant pain. Stool throughout the colon. IUD in the endometrial cavity. In the subcutaneous adipose tissue on the right there is a low density collection measuring 3-4 cm wh ich could represent subcutaneous fluid or abscess collection. This is probably beneath the site of dr licea at the incision. IMPRESSION: 1. 3-4 cm area of low attenuation fluid, fluid density in the subcutaneous adipose tissue to the righ t of midline which could represent fluid or abscess collection within the subcutaneous tissues. 2. Question inflammatory change at the tip of the appendix. The appendix is otherwise normal in appea erica. 3. Post right nephrectomy change with fluid density at the nephrectomy site which appears consistent with post-operative change. POS: [facility]
== END 2018-04-06 21:45 | disposition home or self-care (01) ==
LOC: ERS 19:05
DX: N99.89 Other postprocedural complications and disorders of genitourinary system (principal)
CPT/HCPCS: 36415; 74177; 80053; 84703; 85025; 87070; 87077; 87186; 87205

== ENCOUNTER 2018-12-07 09:39 | Outpatient (CLI) | payer OTHER ==
--- NOTE | 2018-12-07 10:31 | RAD ---
RADIOGRAPH CHEST 2 VIEWS: DATE: 12/07/2018 HISTORY: 28-year-old female with "malignant neoplasm of right kidney, except renal pelvis" FINDINGS: The lungs are clear. The cardiomediastinal silhouette and hilar shadows appear normal. There is no pl eural effusion or pneumothorax. No osseous abnormality is identified. IMPRESSION: Normal
== END 2018-12-07 09:40 | disposition home or self-care (01) ==
LOC: RAD 09:39
PROVIDERS: ATTEND Urology
DX: C64.1 Malignant neoplasm of right kidney, except renal pelvis (principal)
CPT/HCPCS: 71046

== ENCOUNTER 2019-06-04 16:01 | Emergency (ER) | payer MEDICAID, SELFPAY | END 2019-06-04 17:05 | disposition home or self-care (01) | LOC: ERS 16:01 | DX: T81.30XA Disruption of wound, unspecified, initial encounter (principal) ==

== ENCOUNTER 2019-08-14 20:04 | Emergency (ER) | payer SELFPAY ==
[2019-08-14 20:59] LABS: Bacteria/HPF 3+ HPF (None Seen); Bilirubin Negative (Negative); Blood, Urine 1+ (Negative); Clarity Clear (Clear); Glucose, Urine (Dipstick) Normal (Negative); Leukocyte Negative Leu/uL (Negative); Nitrite Negative (Negative); Protein, Urine (Dipstick) 20 mg/dL (Neg-Trace); Urobilinogen Normal mg/dL (Less than 2)
[2019-08-14 21:02] LABS: Pregnancy Test - Urine (BHCG) Negative (Negative)
[2019-08-14 21:03] LABS: Pregu Control Background? CLEAR/WHITE (CLR/WHITE); Pregu Control Bar Appear? YES (CONTROL BAR); Specific Gravity 1.032 (1.002-1.036)
== END 2019-08-14 21:56 | disposition home or self-care (01) ==
LOC: ERS 20:04
DX: N39.0 Urinary tract infection, site not specified (principal)
CPT/HCPCS: 81003; 81015; 81025; 99283

== ENCOUNTER 2020-05-04 13:57 | Outpatient (CLI) | payer OTHER ==
[~2020-05-04 13:57] MED LIST changes: -ISOVUE-370 76%-LOCM 1 ML ONE; +Iopamidol 370 76% 100 ML VIAL ONE
--- NOTE | 2020-05-04 14:39 | RAD ---
EXAM: CHEST TWO VIEWS 05/04/2020 2:36 PM HISTORY: History of renal cell carcinoma COMPARISON: December 07, 2018 FINDINGS: Lungs: No acute airspace consolidation. Heart: Normal in size and contour. Pulmonary Vessels: Normal. Costophrenic Angles: Clear. Pneumothorax: None. Osseous Structures: Intact. Additional Findings: None. IMPRESSION: No significant acute intrathoracic disease.
--- NOTE | 2020-05-04 14:55 | CT ---
CT OF THE ABDOMEN WITH IV CONTRAST: INDICATIONS: History of renal cancer TECHNIQUE: CT images were obtained of the abdomen utilizing IV contrast and 3D reformatted imaging. Axial, coron al and sagittal reformatted images were constructed from the raw data. COMPARISON: Prior CT the abdomen and pelvis with contrast dated April 06, 2018 FINDINGS: ABDOMEN: Lung bases: Clear Liver: Diffuse fatty infiltration Gallbladder: Normal appearing. Pancreas: Normal. Adrenal glands: Normal. Spleen: Normal. Kidneys and ureters: There is postsurgical change of a right nephrectomy. There is no suspicious enha ncing nodularity involving the right renal surgical bed. The left kidney appears within normal limits. Lymph nodes:No lymphadenopathy. Free fluid in abdomen:No free fluid is evident. Small and large bowel: The visualized aspects of the unopacified large and small bowel reveal no defi nite acute abnormality. There is a normal retrocecal appendix. There are small canal phleboliths overlying the right psoas musculature. Appendix:Surgically absent Osseous structures: No acute osseous abnormality. No destructive osteolytic or osteoblastic lesion i s identified. Soft tissues:Normal. A small hematoma overlying the right upper quadrant operative site has intervall y resolved. IMPRESSION: 1. Stable postsurgical change of a right nephrectomy without evidence of localized recurrent lesion o r metastatic disease within the abdomen.
== END 2020-05-04 13:58 | disposition home or self-care (01) ==
LOC: BICCT 13:57
PROVIDERS: ATTEND Urology
DX: C64.1 Malignant neoplasm of right kidney, except renal pelvis (principal); Z90.5 Acquired absence of kidney
CPT/HCPCS: 71046; 74160; Q9967

== ENCOUNTER 2021-09-12 11:11 | Outpatient (CLI) | payer OTHER | END 2021-09-12 11:12 | disposition home or self-care (01) | LOC: BICRAD 11:11 | PROVIDERS: ATTEND Urology | DX: C64.1 Malignant neoplasm of right kidney, except renal pelvis (principal) | CPT/HCPCS: 71046 ==

== ENCOUNTER 2022-08-30 11:08 | Outpatient (CLI) | payer OTHER ==
[2022-08-30] MEDS ORDERED: Iopamidol 370 76% 100 ML VIAL ONE (11:11)
== END 2022-08-30 11:09 | disposition home or self-care (01) ==
LOC: BICCT 11:08
PROVIDERS: ATTEND Urology
DX: C64.1 Malignant neoplasm of right kidney, except renal pelvis (principal); Z90.5 Acquired absence of kidney
CPT/HCPCS: 71046; 74160; 82565

== ENCOUNTER 2023-01-29 15:17 | Emergency (ER) | payer SELFPAY ==
[2023-01-29] MEDS ORDERED: Dexameth. Sod Phosp. 10 MG/ML (CHEMO USE ONLY) ONE (15:53)
[2023-01-29 16:35] LABS: SARS-CoV-2 NAA Rapid Test Not Detected (NotDetected)
== END 2023-01-29 17:12 | disposition home or self-care (01) ==
LOC: ERS 15:17
DX: J02.9 Acute pharyngitis, unspecified (principal); Z20.822 Contact with and (suspected) exposure to COVID-19
CPT/HCPCS: 99284; J1100